=== PATIENT | female | born 1950 | race Caucasian/White ===

== ENCOUNTER 2020-12-05 01:26 | Emergency (ER) | payer BC, MEDICARE ==
[2020-12-05 02:12] LABS: Absolute Lymphocytes (CBC) 1.6 K/uL (0.7-4.9); Basophils % 0.5 % (0-1.3); Hematocrit 33.3 % (36.0-45.0); MPV 7.9 fL (7.6-11.3)
[2020-12-05 02:24] LABS: Protime INR 1.05
[2020-12-05 02:25] LABS: ALT/SGPT 36 U/L (12-78); AST/SGOT 21 U/L (15-37); Albumin 3.6 g/dL (3.4-5.0); Alkaline Phosphatase 180 U/L (45-117); BUN Blood Urea Nitrogen 16 mg/dL (7-18); Bicarbonate 23 mmol/L (21-32); Bilirubin Direct < 0.1 mg/dL (0-0.2); Bilirubin Total 0.3 mg/dL (0.2-1.0); Glucose Level 141 mg/dL (74-106); Lipase 272 U/L (73-393); Potassium 3.4 mmol/L (3.5-5.1); Protein, Total 7.6 g/dL (6.4-8.2); Sodium Level 140 mmol/L (136-145)
[2020-12-05] MEDS ORDERED: PANTOPRAZOLE 40 MG INJ ONE ×2 (02:32→02:34)
[2020-12-05] MEDS ORDERED: NA CHLORIDE 0.9% 250 ML ONE (02:33)
[2020-12-05 03:19] LABS: Urine Blood Negative (Negative); Urine Glucose Negative (Negative); Urine Protein Negative (Negative); Urine Specific Gravity 1.015 (1.005-1.030); Urine pH 5.5 (5.0-7.0)
--- NOTE | 2020-12-05 05:52 | EDPHYS ---
Physician Documentation [facility] Name: Amalia Bettencourt Age: 70 yrs Sex: Female : 1950 Arrival Date: 12/05/2020 Time: 01:40 Bed 4 Private MD: ED Physician Andrew Braswell HPI: 12/05 02:25 This 70 yrs old Female presents to ER via EMS with complaints of VOMITING mh7 BLOOD. 02:25 The patient presents to the emergency department vomiting blood, a moderate amount, mh7 bright red, in a single episode. Onset: The symptoms/episode began/occurred just prior to arrival, today. Abdominal pain: none is appreciated. Modifying factors: The symptoms are alleviated by nothing, the symptoms are aggravated by nothing. 02:26 Associated signs and symptoms: Pertinent negatives: anorexia, chest pain, constipation, mh7 diarrhea, dizziness at rest, dizziness when standing, fever, shortness of breath, syncope, near-syncope. Severity of symptoms: At their worst the symptoms were severe today, in the emergency department the symptoms have resolved and did so just prior to arrival. Historical: - Allergies: 01:47 No Known Allergies; rr5 - Home Meds: 01:47 Aspirin Oral [Active]; prasugrel oral oral [Active]; Alprazolam Oral [Active]; rr5 Ondansetron Oral [Active]; - PMHx: 01:47 ULCERATIVE COLLITIS; ABDOMINAL HERNIA; rr5 - PSHx: 01:47 Heart stents; rr5 02:31 Cholecystectomy; Hysterectomy; rr5 - Immunization history:: Adult Immunizations up to date. - Social history:: Smoking status: unknown. ROS: 02:26 Constitutional: Negative for fever, chills, and weight loss, Eyes: Negative for injury, mh7 pain, redness, and discharge, ENT: Negative for injury, pain, and discharge, Neck: Negative for injury, pain, and swelling, Cardiovascular: Negative for chest pain, palpitations, and edema, Respiratory: Negative for shortness of breath, cough, wheezing, and pleuritic chest pain, Back: Negative for injury and pain, : Negative for injury, bleeding, discharge, and swelling, MS/Extremity: Negative for injury and deformity, Skin: Negative for injury, rash, and discoloration, Neuro: Negative for headache, weakness, numbness, tingling, and seizure, Psych: Negative for depression, anxiety, suicide ideation, homicidal ideation, and hallucinations, Allergy/Immunology: Negative for hives, rash, and allergies, Endocrine: Negative for neck swelling, polydipsia, polyuria, polyphagia, and marked weight changes, Hematologic/Lymphatic: Negative for swollen nodes, abnormal bleeding, and unusual bruising. Exam: 02:26 Constitutional: This is a well developed, well nourished patient who is awake, alert, mh7 and in no acute distress. Head/Face: Normocephalic, atraumatic. Eyes: Pupils equal round and reactive to light, extra-ocular motions intact. Lids and lashes normal. Conjunctiva and sclera are non-icteric and not injected. Cornea within normal limits. Periorbital areas with no swelling, redness, or edema. Neck: Trachea midline, no thyromegaly or masses palpated, and no cervical lymphadenopathy. Supple, full range of motion without nuchal rigidity, or vertebral point tenderness. No Meningismus. Chest/axilla: Normal chest wall appearance and motion. Nontender with no deformity. No lesions are appreciated. Cardiovascular: Regular rate and rhythm with a normal S1 and S2. No gallops, murmurs, or rubs. Normal PMI, no JVD. No pulse deficits. Respiratory: Lungs have equal breath sounds bilaterally, clear to auscultation and percussion. No rales, rhonchi or wheezes noted. No increased work of breathing, no retractions or nasal flaring. Abdomen/GI: Soft, non-tender, with normal bowel sounds. No distension or tympany. No guarding or rebound. No evidence of tenderness throughout. Back: No spinal tenderness. No costovertebral tenderness. Full range of motion. Skin: Warm, dry with normal turgor. Normal color with no rashes, no lesions, and no evidence of cellulitis. MS/ Extremity: Pulses equal, no cyanosis. Neurovascular intact. Full, normal range of motion. Neuro: Awake and alert, GCS 15, oriented to person, place, time, and situation. Cranial nerves II-XII grossly intact. Motor strength 5/5 in all extremities. Sensory grossly intact. Cerebellar exam normal. Normal gait. Psych: Awake, alert, with orientation to person, place and time. Behavior, mood, and affect are within normal limits. 02:26 Abdomen/GI: Rectal exam: rectal tone normal, Stool: brown, guaiac negative, mh7 hemorrhoid(s), are not appreciated, mass, is not appreciated, swelling, is not appreciated, tenderness, is not appreciated, fecal impaction, is not appreciated, the exam is chaperoned by the nurse. Vital Signs: 01:40 BP 132 / 78; Pulse 86; Resp 16; Temp 97.7; Pulse Ox 98% 3 lpm ; Weight 81.65 kg; Height rr5 5 ft. 6 in. (167.64 cm); Pain 0/10; 02:33 BP 104 / 51; Pulse 80; Resp 19; Pulse Ox 100% on 3 lpm NC; rr5 03:30 BP 106 / 89; Pulse 75; Resp 17; Pulse Ox 99% on 2 lpm NC; rr5 04:33 BP 110 / 70; Pulse 64; Resp 16; Pulse Ox 99% on 2 lpm NC; rr5 05:30 BP 115 / 69; Pulse 60; Resp 17; Pulse Ox 97% on R/A; rr5 06:35 BP 121 / 67; Pulse 69; Resp 19; Pulse Ox 96% ; rr5 01:40 Body Mass Index 29.05 (81.65 kg, 167.64 cm) rr5 MDM: 05:49 Differential diagnosis: gastritis, hemorrhagic shock, varices, Upper GI bleed, mh7 Hematemasis. Data reviewed: vital signs, nurses notes, EMS record, lab test result(s), cardiac enzymes, CBC, electrolytes, EKG, radiologic studies, plain films. Data interpreted: Pulse oximetry: on room air is 99 %. Interpretation: normal. Counseling: I had a detailed discussion with the patient and/or guardian regarding: the historical points, exam findings, and any diagnostic results supporting the discharge/admit diagnosis, lab results, radiology results, the need to transfer to another facility, [facility] does not immediately have the required specialist. Response to treatment: the patient's symptoms have resolved after treatment, the patient's blood pressure is in an acceptable range, mental status has returned to baseline, the patient no longer shows bradycardia, the patient is not short of breath, the patient is not tachycardic, the patient's pain is gone, the patient's temperature has normalized. 05:51 Patient medically screened. 12/05 01:51 Order name: Basic Metabolic Panel; Complete Time: 02:53 [facility] 12/05 01:51 Order name: CBC with Diff; Complete Time: 02:46 [facility] 12/05 01:51 Order name: Hepatic Function; Complete Time: 02:53 [facility] 12/05 01:51 Order name: Lipase; Complete Time: 02:53 [facility] 12/05 01:51 Order name: Type And Screen; Complete Time: 02:53 [facility] 12/05 02:06 Order name: Protime (+inr); Complete Time: 02:53 [facility] 12/05 02:07 Order name: Ptt, Activated; Complete Time: 02:53 [facility] 12/05 02:07 Order name: Guiac [facility] 12/05 02:08 Order name: Troponin (emerg Dept Use Only); Complete Time: 02:53 [facility] 12/05 02:55 Order name: Lipase [facility] 12/05 02:56 Order name: Lipase; Complete Time: 04:30 [facility]MS 12/05 03:19 Order name: Urine Dipstick-Ancillary; Complete Time: 04:30 [facility] 12/05 04:34 Order name: SARS-COV-2 RT PCR; Complete Time: 05:00 [facility]MS 12/05 01:51 Order name: IV Saline Lock; Complete Time: 01:51 [facility] 12/05 01:51 Order name: Labs collected and sent; Complete Time: 01:51 [facility] 12/05 02:07 Order name: EKG - Nurse/Tech; Complete Time: 02:31 [facility] 12/05 02:08 Order name: Chest Single View XRAY [facility] 12/05 02:11 Order name: Urine Dipstick-Ancillary (obtain specimen); Complete Time: 03:18 mh7 Administered Medications: 02:25 Drug: ProTONIX (pantoprazole) 80 mg Route: IVP; Site: left hand; rr5 03:25 Follow up: Response: No adverse reaction rr5 02:30 Drug: ProTONIX (pantoprazole) 8 mg/hr Route: IV; Rate: 25 ml/hr; Site: left hand; rr5 06:31 Follow up: Response: No adverse reaction; IV Status: Infusion continued upon transfer; rr5 IV Intake: 100ml 03:10 Drug: NS 0.9% 500 ml Route: IV; Rate: bolus; Site: left hand; rr5 04:00 Follow up: Response: No adverse reaction; IV Status: Completed infusion; IV Intake: rr5 500ml Point of Care Testing: Guaiac: 02:07 Stool Guaiac: Negative; Stool Hemoccult Control: Pass; rr5 Disposition: 12/05/20 05:51 Transfer ordered to Other Acute Care Facility. Diagnosis is Upper GI Bleed, Hematemasis. - Reason for transfer: Higher level of care. - Accepting physician is Dr. Feliz Jung. - Condition is Stable. - Problem is new. - Symptoms have improved. Signatures: Dispatcher [employer] EDMS Miles Pardo, SALT MAKER-C SALT MAKER-Cla1 Bereket Bhatt, RN RN rr5 Andrew Braswell MD MD mh7 Corrections: (The following items were deleted from the chart) 03:38 03:02 CORONAVIRUS+MR.LAB.BRZ ordered. [facility] 05:52 05:51 12/05/2020 05:51 Transfer ordered to Other Acute Care Facility. Diagnosis is mh7 Upper GI Bleed, Hematemasis. Reason for transfer: Higher level of care. Accepting physician is Dr. Tan Jung. Condition is Stable. Problem is new. Symptoms have improved. [facility] 06:36 05:52 12/05/2020 05:51 Transfer ordered to Other Acute Care Facility. Diagnosis is rr5 Upper GI Bleed, Hematemasis. Reason for transfer: Higher level of care. Accepting physician is Dr. Feliz Jung. Condition is Stable. Problem is new. Symptoms have improved. 7
--- NOTE | 2020-12-05 05:52 | ER ---
Nurse's Notes [facility] Name: Amalia Bettencourt Age: 70 yrs Sex: Female : 1950 Arrival Date: 12/05/2020 Time: 01:40 Bed 4 Private MD: Diagnosis: Upper GI Bleed, Hematemasis Presentation: 12/05 01:40 Chief complaint: EMS states: sudden onset of vomiting fresh blood approximate 300ml on rr5 the floor. 01:40 Coronavirus screen: Client denies travel out of the [place] in the last 14 days. At this rr5 time, the client does not indicate any symptoms associated with coronavirus-19. Ebola Screen: Patient negative for fever greater than or equal to 101.5 degrees Fahrenheit, and additional compatible Ebola Virus Disease symptoms Patient denies exposure to infectious person. Patient denies travel to an Ebola-affected area in the 21 days before illness onset. Initial Sepsis Screen: Does the patient meet any 2 criteria? No. Patient's initial sepsis screen is negative. Does the patient have a suspected source of infection? No. Patient's initial sepsis screen is negative. Risk Assessment: Do you want to hurt yourself or someone else? Patient reports no desire to harm self or others. Onset of symptoms was December 05, 2020. 01:40 Method Of Arrival: EMS: [facility] rr5 01:40 Acuity: TASIA 3 rr5 Historical: - Allergies: 01:47 No Known Allergies; rr5 - Home Meds: 01:47 Aspirin Oral [Active]; prasugrel oral oral [Active]; Alprazolam Oral [Active]; rr5 Ondansetron Oral [Active]; - PMHx: 01:47 ULCERATIVE COLLITIS; ABDOMINAL HERNIA; rr5 - PSHx: 01:47 Heart stents; rr5 02:31 Cholecystectomy; Hysterectomy; rr5 - Immunization history:: Adult Immunizations up to date. - Social history:: Smoking status: unknown. Screenin:50 Abuse screen: Denies threats or abuse. Denies injuries from another. Nutritional rr5 screening: No deficits noted. Tuberculosis screening: No symptoms or risk factors identified. Fall Risk IV access (20 points). Total Singletary Fall Scale indicates No Risk (0-24 pts). Assessment: 01:49 General: Appears in no apparent distress. uncomfortable, Behavior is calm, cooperative, rr5 appropriate for age. Pain: Complains of pain in abdomen Pain Quality of pain is described as DISCOMFORT. Neuro: Level of Consciousness is awake, alert, obeys commands, Oriented to person, place, time. Cardiovascular: Capillary refill < 3 seconds Patient's skin is warm and dry. Respiratory: Airway is patent Respiratory effort is even, unlabored, Respiratory pattern is regular, symmetrical. GI: Abdomen is round Abdomen is tender to palpation Reports vomiting, fresh blood. : No signs and/or symptoms were reported regarding the genitourinary system. EENT: No signs and/or symptoms were reported regarding the EENT system. Derm: Skin is intact, is healthy with good turgor, Skin is pale, Skin temperature is warm. Musculoskeletal: Capillary refill < 3 seconds. 03:19 Reassessment: Patient appears in no apparent distress at this time. Patient is alert, rr5 oriented x 3, equal unlabored respirations, skin warm/dry/pink. for transfer to [facility]. 04:33 Reassessment: Patient appears in no apparent distress at this time. resting eyes closed rr5 breathing spontaneously with O2 at 2liters/NC. 04:56 Reassessment: no bed available in [facility], will try to transfer in [address] patient agreed. 06:07 Reassessment: Report given to STEPHY Aden for patient transfer to [place] [address] room 408. 06:36 Reassessment: Patient appears in no apparent distress at this time. Patient is alert, rr5 oriented x 3, equal unlabored respirations, skin warm/dry/pink. report given to [facility] awake alert, vital signs taken and recorded. IV cannula intact. Vital Signs: 01:40 BP 132 / 78; Pulse 86; Resp 16; Temp 97.7; Pulse Ox 98% 3 lpm ; Weight 81.65 kg; Height rr5 5 ft. 6 in. (167.64 cm); Pain 0/10; 02:33 BP 104 / 51; Pulse 80; Resp 19; Pulse Ox 100% on 3 lpm NC; rr5 03:30 BP 106 / 89; Pulse 75; Resp 17; Pulse Ox 99% on 2 lpm NC; rr5 04:33 BP 110 / 70; Pulse 64; Resp 16; Pulse Ox 99% on 2 lpm NC; rr5 05:30 BP 115 / 69; Pulse 60; Resp 17; Pulse Ox 97% on R/A; rr5 06:35 BP 121 / 67; Pulse 69; Resp 19; Pulse Ox 96% ; rr5 01:40 Body Mass Index 29.05 (81.65 kg, 167.64 cm) rr5 ED Course: 01:40 Patient arrived in ED. rr5 01:40 Inserted saline lock: 20 gauge in right forearm, using aseptic technique. Blood rr5 collected. 01:40 Maintain EMS IV. Dressing intact. Good blood return noted. Site clean \T\ dry. Gauge \T\ rr 5 site: g18 LEFT HAND. 01:41 Andrew Braswell MD is Attending Physician. [facility] 01:43 Bereket Bhatt RN is Primary Nurse. rr5 01:45 Triage completed. rr5 01:47 Arm band placed on right wrist. rr5 01:50 Patient has correct armband on for positive identification. Placed in gown. Bed in low rr5 position. Call light in reach. surveillance monitor on. Pulse ox on. NIBP on. 02:21 Chest Single View XRAY In Process Unspecified. EDMS 02:31 EKG done, by ED staff, reviewed by Andrew Braswell MD. rr5 04:38 initiated a transfer with Safia from [facility]. mw2 04:47 [facility] declined due to capacity. mw2 04:55 initiated a transfer with Yamila Brown from [facility]. mw2 05:[address] Braswell with Dr. Kwok from [facility]. mw2 05:49 administrative approval given by Yamila Brown/ patient has been accepted to [address] bed 408/ Dr. Kwok accepted the patient in transfer/ report to be called to [phone]. 06:08 No provider procedures requiring assistance completed. lp1 06:36 Patient transferred, IV remains in place. intact, No redness/swelling at site. rr5 Administered Medications: 02:25 Drug: ProTONIX (pantoprazole) 80 mg Route: IVP; Site: left hand; rr5 03:25 Follow up: Response: No adverse reaction rr5 02:30 Drug: ProTONIX (pantoprazole) 8 mg/hr Route: IV; Rate: 25 ml/hr; Site: left hand; rr5 06:31 Follow up: Response: No adverse reaction; IV Status: Infusion continued upon transfer; rr5 IV Intake: 100ml 03:10 Drug: NS 0.9% 500 ml Route: IV; Rate: bolus; Site: left hand; rr5 04:00 Follow up: Response: No adverse reaction; IV Status: Completed infusion; IV Intake: rr5 500ml Point of Care Testing: Guaiac: 02:07 Stool Guaiac: Negative; Stool Hemoccult Control: Pass; rr5 Intake: 04:00 IV: 500ml; Total: 500ml. rr5 06:31 IV: 100ml; Total: 600ml. rr5 Outcome: 05:51 ER care complete, transfer ordered by 7 06:08 Condition: stable lp1 06:08 Instructed on the need for transfer. 06:36 Transferred by ground EMS to [facility], Transfer form completed. rr5 06:36 Patient left the ED. rr5 Signatures: Dispatcher [employer] EDMS Amanda Frias RN RN lp1 Armando Soto 2 Bereket Bhatt RN RN rr5 Andrew Braswell MD MD 7 Corrections: (The following items were deleted from the chart) 01:49 01:40 BP 132 / 78; Pulse 86bpm; Resp 16bpm; Pulse Ox 98%; Temp 97.7F; 81.65 kg; Height rr5 5 ft. 6 in.; BMI: 29.0; Pain 0/10; rr5 02:01 01:49 Derm: Skin is intact, is healthy with good turgor, Skin temperature is warm rr5 rr5 05:53 05:[address] Braswell with [facility]. Fong [facility] mw2
[2020-12-05 06:45] VITALS: TEMP 97.7
[2020-12-05 07:00] VITALS: BP 121/67; O2SAT 96
--- NOTE | 2020-12-05 11:58 | RAD REPORT ---
EXAM DESCRIPTION: RAD - Chest Single View - 12/05/2020 2:23 am CLINICAL HISTORY: Hematemesis Chest pain. COMPARISON: CHEST PA AND LAT 2 VIEW dated 02/07/2011; CHEST SINGLE VIEW dated 10/12/2008 FINDINGS: Portable technique limits examination quality. The lungs are grossly clear. The heart is upper limit of normal in size. No displaced fractures.Cervi alexander spine hardware plate. IMPRESSION: No acute intrathoracic process suspected.
== END 2020-12-05 06:36 ==
LOC: ER 01:26
DX: K92.0 Hematemesis (principal); Z20.822 Contact with and (suspected) exposure to COVID-19; Z79.82 Long term (current) use of aspirin; Z95.818 Presence of other cardiac implants and grafts
CPT/HCPCS: 96365; 93005; 85025; 80048; 36415; 86900; 86850; 85610; 86901; 80076; 85730; 82272; 81003; 84484; 83690 ×2; 71045; 99285; 96366; U0003; C9113 ×2; J7050

== ENCOUNTER 2021-03-12 02:09 | Emergency (ER) | payer OTHER, MEDICARE ==
[2021-03-12] MEDS ORDERED: LIDOCAINE VISCOUS 2% SOLN 15 ML UDC ONE (02:40)
[2021-03-12] MEDS ORDERED: TETRACAINE HCL 0.5% 4ML OPTH ONE (03:34)
--- NOTE | 2021-03-12 03:42 | ER ---
Nurse's Notes [facility] Name: Amalia Bettencourt Age: 70 yrs Sex: Female : 1950 Arrival Date: 03/12/2021 Time: 02:12 Bed 12 Private MD: Diagnosis: Foreign body in left ear-insect, partial removal Presentation: 03/12 02:33 Chief complaint: Patient states: bug in left ear. Coronavirus screen: Vaccine status: em Patient reports receiving the 2nd dose of the covid vaccine. Ebola Screen: Patient negative for fever greater than or equal to 101.5 degrees Fahrenheit, and additional compatible Ebola Virus Disease symptoms Patient denies exposure to infectious person. Patient denies travel to an Ebola-affected area in the 21 days before illness onset. No symptoms or risks identified at this time. Initial Sepsis Screen: Does the patient meet any 2 criteria? HR > 90 bpm. No. Patient's initial sepsis screen is negative. Does the patient have a suspected source of infection? No. Patient's initial sepsis screen is negative. Risk Assessment: Do you want to hurt yourself or someone else? Patient reports no desire to harm self or others. Onset of symptoms was March 12, 2021. 02:33 Method Of Arrival: Wheelchair em 02:33 Acuity: TASIA 4 em Triage Assessment: 04:10 General: Appears uncomfortable, Behavior is cooperative, appropriate for age. Pain: df1 Complains of pain in left ear. EENT: Ear canal w/ foreign body noted from left ear. Neuro: No deficits noted. Cardiovascular: No deficits noted. Respiratory: No deficits noted. GI: No deficits noted. Historical: - Allergies: 02:34 No Known Allergies; em - PMHx: 02:34 abdominal hernia; ulcerative collitis; em - Immunization history:: Client reports receiving the 2nd dose of the Covid vaccine. - Social history:: Smoking status: Patient denies any tobacco usage or history of. Screenin:10 Abuse screen: Denies threats or abuse. Nutritional screening: No deficits noted. df1 Tuberculosis screening: No symptoms or risk factors identified. Fall Risk None identified. Assessment: 04:13 Reassessment: Patient appears in no apparent distress at this time. No changes from df1 previously documented assessment. General: Appears distressed, Behavior is cooperative, Reports Denies fever, feeling ill, fatigue, chills. Neuro: No deficits noted. Cardiovascular: No deficits noted. Respiratory: No deficits noted. EENT: Ear canal w/ foreign body noted from left ear. Vital Signs: 02:33 Pulse 134; Resp 28; Temp 97.1; Pulse Ox 99% on R/A; em 03:38 BP 134 / 72; Pulse 96; Resp 20; Pulse Ox 98% on R/A; em 04:15 BP 133 / 79; Pulse 78; Resp 18; Temp 98.2; Pulse Ox 98% on R/A; df1 ED Course: 02:12 Patient arrived in ED. bp1 02:22 Andrew Braswell MD is Attending Physician. mh7 02:34 Triage completed. em 02:34 Arm band placed on. em 03:13 Argelia Castaneda is Primary Nurse. df1 03:39 Tuyet Wilde MD is Referral Physician. 7 04:11 Assist provider with foreign body removal from left ear canal. Patient did not have IV df1 access during this emergency room visit. 04:13 Patient has correct armband on for positive identification. Placed in gown. Bed in low df1 position. Call light in reach. Door closed. Noise minimized. Lights dimmed. Administered Medications: 03:20 Drug: Tetracaine Solution (0.5 %) 1 drops {Note: left ear.} Route: Topical; Site: em affected area; Outcome: 03:41 Discharge ordered by . 7 04:12 Discharged to home ambulatory. df1 04:12 Condition: good 04:12 Discharge instructions given to patient, Instructed on discharge instructions, follow up and referral plans. 04:16 Patient left the ED. df1 Signatures: Sen Johnson, RN RN Tg [facility] Andrew Braswell MD MD mh7 [place], Dawn df1
--- NOTE | 2021-03-12 03:42 | EDPHYS ---
Physician Documentation [facility] Name: Amalia Bettencourt Age: 70 yrs Sex: Female : 1950 Arrival Date: 03/12/2021 Time: 02:12 Bed 12 Private MD: ED Physician Andrew Braswell HPI: 03/12 02:50 This 70 yrs old Female presents to ER via Wheelchair with complaints of mh7 Foreign Body In Ear, - Possibly bug. 02:50 The patient or guardian reports the patient has a suspected foreign body, of the ear, mh7 on the left. The reported likely foreign body is an insect. Onset: The symptoms/episode began/occurred today. Current symptoms: foreign body sensation. Treatment Prior to Arrival: none. Historical: - Allergies: 02:34 No Known Allergies; em - PMHx: 02:34 abdominal hernia; ulcerative collitis; em - Immunization history:: Client reports receiving the 2nd dose of the Covid vaccine. - Social history:: Smoking status: Patient denies any tobacco usage or history of. ROS: 02:50 Constitutional: Negative for fever, chills, and weight loss, Eyes: Negative for injury, mh7 pain, redness, and discharge, Neck: Negative for injury, pain, and swelling, Cardiovascular: Negative for chest pain, palpitations, and edema, Respiratory: Negative for shortness of breath, cough, wheezing, and pleuritic chest pain, Abdomen/GI: Negative for abdominal pain, nausea, vomiting, diarrhea, and constipation, Back: Negative for injury and pain, : Negative for injury, bleeding, discharge, and swelling, MS/Extremity: Negative for injury and deformity, Skin: Negative for injury, rash, and discoloration, Neuro: Negative for headache, weakness, numbness, tingling, and seizure, Psych: Negative for depression, anxiety, suicide ideation, homicidal ideation, and hallucinations, Allergy/Immunology: Negative for hives, rash, and allergies, Endocrine: Negative for neck swelling, polydipsia, polyuria, polyphagia, and marked weight changes, Hematologic/Lymphatic: Negative for swollen nodes, abnormal bleeding, and unusual bruising. Exam: 02:50 Head/Face: Normocephalic, atraumatic. mh7 02:50 Skin: Warm, dry with normal turgor. Normal color with no rashes, no lesions, and no evidence of cellulitis. Neuro: Awake and alert, GCS 15, oriented to person, place, time, and situation. Cranial nerves II-XII grossly intact. Motor strength 5/5 in all extremities. Sensory grossly intact. Cerebellar exam normal. Normal gait. 02:50 Constitutional: The patient appears in no acute distress, alert, awake, anxious. 02:50 ENT: External ear(s): are unremarkable, Ear canal(s): foreign body, an insect, in the left external ear canal, TM's: not visable, because of a foreign body, Examination of the other ear shows no obvious abnormality, Nose: is normal. 02:50 Psych: Behavior/mood is anxious, Affect is animated, Oriented to person, place, time, Patient has no thoughts/intents to harm self or others. Judgement / Insight is normal. Memory is normal. Delusions/hallucinations are not present. Vital Signs: 02:33 Pulse 134; Resp 28; Temp 97.1; Pulse Ox 99% on R/A; em 03:38 BP 134 / 72; Pulse 96; Resp 20; Pulse Ox 98% on R/A; em 04:15 BP 133 / 79; Pulse 78; Resp 18; Temp 98.2; Pulse Ox 98% on R/A; df1 Procedures: 02:50 Foreign Body Removal: an insect, from the left ear canal, by using a curette, lidocaine [facility] lavage, normal saline irrigation, The patient tolerated the removal well, Partial removal of insect from left ear. MDM: 02:50 Data reviewed: vital signs, nurses notes. Counseling: I had a detailed discussion with [facility] the patient and/or guardian regarding: the historical points, exam findings, and any diagnostic results supporting the discharge/admit diagnosis, the need for outpatient follow up, an ENT specialist, to return to the emergency department if symptoms worsen or persist or if there are any questions or concerns that arise at home. Response to treatment: the patient's symptoms have markedly improved after treatment. 03:41 Patient medically screened. [facility] Administered Medications: 03:20 Drug: Tetracaine Solution (0.5 %) 1 drops {Note: left ear.} Route: Topical; Site: em affected area; Disposition Summary: 03/12/21 03:41 Discharge Ordered Location: Home [facility] Problem: new [facility] Symptoms: have improved [facility] Condition: Stable [facility] Diagnosis - Foreign body in left ear - insect, partial removal [facility] Followup: [facility] - With: Tuyet Wilde MD - When: 1 - 2 days - Reason: Worsening of condition, Recheck today's complaints Discharge Instructions: - Discharge Summary Sheet [facility] - Ear Foreign Body, [id number] [facility] Forms: - Medication Reconciliation Form [facility] - Thank You Letter [facility] - Antibiotic Education [facility] - Prescription Opioid Use [facility] Prescriptions: - Cortisporin-TC 3.3-3-10-0.5 mg/mL Otic Suspension - instill 4 drops by OTIC route every 6 hours; 1 bottle; Refills: 0, Product [facility] Selection Permitted Signatures: Sen Johnson RN RN Andrew Sahni MD MD [facility] Argelia Castaneda df1
[2021-03-12 04:23] VITALS: O2SAT 98
[2021-03-12 04:24] VITALS: BP 133/79; TEMP 98.2
== END 2021-03-12 04:16 | disposition home or self-care (01) ==
LOC: ER 02:09
PROC: 09C4XZZ Extirpation of Matter from Left External Auditory Canal, External Approach (ICD-10-PCS; principal; 2021-03-12)
DX: T16.2XXA Foreign body in left ear, initial encounter (principal)
CPT/HCPCS: 99283

== ENCOUNTER 2021-03-13 11:53 | Emergency (ER) | payer OTHER, MEDICARE ==
[2021-03-13] MEDS ORDERED: HYDROCODONE/APAP 5/325 MG TAB ONE (12:57)
--- NOTE | 2021-03-13 13:02 | EDPHYS ---
Physician Documentation [facility] Name: Amalia Bettencourt Age: 70 yrs Sex: Female : 1950 Arrival Date: 03/13/2021 Time: 11:54 Bed 16 Private MD: ED Physician Nilton Decker HPI: 03/13 12:58 This 70 yrs old Female presents to ER via Ambulatory with complaints of pm1 Foreign Body In Ear - partial removal yest. 17:26 The patient presents with pain, that is acute. The complaints affect the left ear. pm1 Onset: The symptoms/episode began/occurred yesterday. Modifying factors: The symptoms are alleviated by nothing, the symptoms are aggravated by And body present in ear, insect. Associated signs and symptoms: The patient has no apparent associated signs or symptoms. Severity of symptoms: in the emergency department the symptoms are unchanged. The patient has not experienced similar symptoms in the past. The patient has been recently seen at the [facility] Emergency Department, yesterday, for similar complaints Partial removal of insect from ear yesterday, discharged home with Cortisporin otic. Historical: - Allergies: 12:13 No Known Allergies; aa5 - PMHx: 12:13 abdominal hernia; ulcerative collitis; aa5 - Immunization history:: Client reports receiving the 2nd dose of the Covid vaccine. - Social history:: Smoking status: Patient denies any tobacco usage or history of. ROS: 17:26 Constitutional: Negative for fever, chills, and weight loss. pm1 17:26 Cardiovascular: Negative for chest pain, palpitations, and edema, Respiratory: Negative for shortness of breath, cough, wheezing, and pleuritic chest pain. 17:26 Abdomen/GI: Negative for abdominal pain, nausea, vomiting, diarrhea, and constipation, MS/Extremity: Negative for injury and deformity, Skin: Negative for injury, rash, and discoloration, Neuro: Negative for headache, weakness, numbness, tingling, and seizure. 17:26 ENT: Positive for ear pain, Negative for sore throat. 17:26 All other systems are negative. Exam: 17:26 Constitutional: This is a well developed, well nourished patient who is awake, alert, pm1 and in no acute distress. Head/Face: Normocephalic, atraumatic. 17:26 Skin: Warm, dry with normal turgor. Normal color with no rashes, no lesions, and no evidence of cellulitis. MS/ Extremity: Pulses equal, no cyanosis. Neurovascular intact. Full, normal range of motion. 17:26 ENT: External ear(s): no acute changes, Ear canal(s): foreign body, an insect, in the left external ear canal, partial portion of its thorax, TM's: no acute changes. 17:26 Cardiovascular: Exam negative for acute changes, Rate: normal, Rhythm: regular, Pulses: no pulse deficits are appreciated. 17:26 Respiratory: Exam negative for acute changes, respiratory distress, shortness of breath. 17:26 Neuro: Exam negative for acute changes, Orientation: is normal, Mentation: is normal, Motor: is normal, moves all fours, Gait: is steady, at a normal pace, without difficulty. Vital Signs: 12:09 BP 123 / 69; Pulse 103; Resp 20 S; Temp 97.6(TE); Pulse Ox 97% on R/A; aa5 13:00 BP 131 / 71; Pulse 97; Resp 19; Temp 97.9; Pulse Ox 98% ; bp MDM: 12:12 Patient medically screened. [facility] 12:58 Data reviewed: vital signs. Data interpreted: Pulse oximetry: on room air is 97 %. pm1 Interpretation: normal. Counseling: I had a detailed discussion with the patient and/or guardian regarding: the historical points, exam findings, and any diagnostic results supporting the discharge/admit diagnosis, the need for outpatient follow up, for definitive care, an ENT specialist, to return to the emergency department if symptoms worsen or persist or if there are any questions or concerns that arise at home. 12:58 ED course: Reports improvement in symptoms with ear irrigation. Some portions of the pm1 insect still present in the ear, but close to the tympanic membrane. I do not want to use any clamps or curettes due to the risk of causing harm. Recommended the patient follow up with ENT for definitive care. 13:07 ED course: [place] reviewed. Patient with pain from foreign body present in the ear pm1 that I cannot remove. Will give the patient small dose of codeine for enough days to follow up with ENT. Administered Medications: 12:30 Drug: HYDROcodone-acetaminophen 5 mg-325 mg 1 tabs Route: PO; bp 12:51 Follow up: Response: Pain is decreased bp Disposition: 03/14 10:00 Co-signature as Attending Physician, Nilton Decekr MD I agree with the assessment and calvin plan of care. Disposition Summary: 03/13/21 13:01 Discharge Ordered Location: Home pm1 Problem: new pm1 Symptoms: have improved pm1 Condition: Stable pm1 Diagnosis - Foreign body in left ear pm1 Followup: pm1 - With: Emergency Department - When: As needed - Reason: Worsening of condition Followup: pm1 - With: Ami Duque MD - When: 2 - 3 days - Reason: Recheck today's complaints, Continuance of care, Re-evaluation by your physician Discharge Instructions: - Discharge Summary Sheet pm1 - Ear Foreign Body pm1 Forms: - Medication Reconciliation Form pm1 - Thank You Letter pm1 - Antibiotic Education pm1 - Prescription Opioid Use pm1 Prescriptions: - acetaminophen-codeine 300-15 mg Oral tablet - take 1 tablet by ORAL route every 6 hours As needed; 12 tablet; Refills: 0, pm1 Product Selection Permitted Signatures: Nilton Decker MD MD cha Calderon, Audri, RN RN aa5 Flakito Lam NP [employer] pm1 Dayron Hodgson, RN RN bp
--- NOTE | 2021-03-13 13:02 | ER ---
Nurse's Notes [facility] Name: Amalia Bettencourt Age: 70 yrs Sex: Female : 1950 Arrival Date: 03/13/2021 Time: 11:54 Bed 16 Private MD: Diagnosis: Foreign body in left ear Presentation: 03/13 12:09 Chief complaint: Patient states: seen here yesterday for insect in her left ear, pt aa5 states "they weren't able to take it all out yesterday and my ear hurts and is swollen". 12:09 Coronavirus screen: At this time, the client does not indicate any symptoms associated aa5 with coronavirus-19. Ebola Screen: Patient negative for fever greater than or equal to 101.5 degrees Fahrenheit, and additional compatible Ebola Virus Disease symptoms. Initial Sepsis Screen: Does the patient meet any 2 criteria? HR > 90 bpm. Does the patient have a suspected source of infection? No. Patient's initial sepsis screen is negative. Risk Assessment: Do you want to hurt yourself or someone else? Patient reports no desire to harm self or others. Onset of symptoms was February 2021. 12:09 Acuity: TASIA 4 aa5 12:09 Method Of Arrival: Ambulatory aa5 Triage Assessment: 13:32 General: Appears distressed, uncomfortable, obese, Behavior is cooperative, appropriate bp for age, anxious. Pain: Complains of pain in left ear. EENT: Reports INSECT IN LEFT EAR. Neuro: No deficits noted. Cardiovascular: No deficits noted. Respiratory: No deficits noted. GI: No signs and/or symptoms were reported involving the gastrointestinal system. : No signs and/or symptoms were reported regarding the genitourinary system. Derm: No deficits noted. Musculoskeletal: No deficits noted. Historical: - Allergies: 12:13 No Known Allergies; aa5 - PMHx: 12:13 abdominal hernia; ulcerative collitis; aa5 - Immunization history:: Client reports receiving the 2nd dose of the Covid vaccine. - Social history:: Smoking status: Patient denies any tobacco usage or history of. Screenin:15 Abuse screen: Denies threats or abuse. Denies injuries from another. Nutritional bp screening: No deficits noted. Tuberculosis screening: No symptoms or risk factors identified. Fall Risk None identified. Assessment: 13:30 Reassessment: PT D/C HOME AMBULATORY, DX WITH LEFT EAR FOREIGN BODY. bp Vital Signs: 12:09 BP 123 / 69; Pulse 103; Resp 20 S; Temp 97.6(TE); Pulse Ox 97% on R/A; aa5 13:00 BP 131 / 71; Pulse 97; Resp 19; Temp 97.9; Pulse Ox 98% ; bp ED Course: 11:54 Patient arrived in ED. as 12:09 Dayron Hodgson, RN is Primary Nurse. bp 12:09 Arm band placed on. aa5 12:10 Flakito Lam NP is PHCP. pm1 12:10 Nilton Decker MD is Attending Physician. pm1 12:13 Triage completed. aa5 12:15 Patient has correct armband on for positive identification. Bed in low position. Call bp light in reach. Side rails up X2. 12:15 Assist provider with foreign body removal from left ear canal. UNSUCCESSFUL. bp 13:01 Ami Duque MD is Referral Physician. pm1 13:32 Patient did not have IV access during this emergency room visit. bp Administered Medications: 12:30 Drug: HYDROcodone-acetaminophen 5 mg-325 mg 1 tabs Route: PO; bp 12:51 Follow up: Response: Pain is decreased bp Outcome: 13:01 Discharge ordered by . pm1 13:32 Discharged to home ambulatory. bp 13:32 Condition: stable 13:32 Discharge instructions given to patient, Instructed on discharge instructions, follow up and referral plans. medication usage, Demonstrated understanding of instructions, follow-up care, medications, Prescriptions given X 1. 13:36 Patient left the ED. bp Signatures: Venita Granado Audri, RN RN aa5 Flakito Lam NP TESTING CONSULTANT pm1 Dayron Hodgson, STEPHY RN bp
[2021-03-13 13:43] VITALS: BP 131/71; TEMP 97.9; O2SAT 98
== END 2021-03-13 13:36 | disposition home or self-care (01) ==
LOC: ER 11:53
DX: T16.2XXA Foreign body in left ear, initial encounter (principal)
CPT/HCPCS: 99283

== ENCOUNTER 2021-08-04 18:38 | Inpatient (IN) | payer OTHER, MEDICARE ==
--- OUTSIDE RECORDS SUMMARY | 2021-08-04 18:43 | XMS REPORT | Continuity of Care Document ---
:1950 Author Organization [facility] t Address [address] [place] [address] Care Team Providers Name Role Phone PCP, DOES NOT HAVE A Primary Care Physician Unavailable HANK Attending Clinician Unavailable Attending Clinician Unavailable Singer WIGGINS Attending Clinician ORLIN Attending Clinician Unavailable LIANG Attending Clinician Unavailable MD Carolina TAVERA Attending Clinician Unavailable VERONICA Attending Clinician Unavailable MD PAWAN Attending Clinician Unavailable DANA Attending Clinician Unavailable MD Harriet CORTEZ Attending Clinician Unavailable HANK Admitting Clinician Unavailable Admitting Clinician Unavailable Elena LEVY Admitting Clinician Unavailable LIANG Admitting Clinician Unavailable MD Carolina TAVERA Admitting Clinician Unavailable VERONICA Admitting Clinician Unavailable MD PAWAN Admitting Clinician Unavailable DANA Admitting Clinician Unavailable MD Harriet CORTEZ Admitting Clinician Unavailable Payers Payer Name Policy Type Policy Number Effective Date Expiration Date S jem BCBS ADV HMO [id number] 2015 EXCHANGE 00:00:00 [facility] [id number] HEALTHCARE MEDICARE PART A \\T\\ [id number] 2015 B 00:00:00 [facility] [id number] 2020 MEDICARE SUPPLEMENT 00:00:00 Problems Condition Condition Condition Status Onset Resolution Last Treating Co mments Source Name Details Category Date Date Treatment Clinician Date No known No known Disease Unive rs active active ity of problems problems [facility] Nausea Problem Active 2016-04-25 Memor ia 02:07:56 l Nausea [place] Active Problem 04/25/2016 [facility] Constipati Problem Active 2016-04-25 M emoria on 02:07:56 l Ten Constipati on Active Problem 6 [facility] GERD Problem Active 2016-04-25 Memor ia (PQRI) 02:07:56 l GERD [place] (PQRI) Active Problem 04/25/2016 [facility] Allergies, Adverse Reactions, Alerts Allergy Allergy Status Severity Reaction(s) Onset Inactive Treating Comm ents Source Name Type Date Date Clinician NO KNOWN Allergy Active [facility] ALLERGIE S NO KNOWN Drug Active Univers ALLERGIE Class ity of S [facility] Social History Social Habit Start Date Stop Date Quantity Comments Source Exposure to Not sure [facility] SARS-CoV-2 (event) Medica l [place] Alcohol 2014-11-09 2014-11-09 Dot Hackett nn 00:00:00 00:00:00 Sex Ass[birth year] At [birth year] [facility] 00:00:00 00:00:00 [facility] Smoking Status Start Date Stop Date Source Unknown if ever smoked General acute hospital Medications Ordered Filled Start Stop Current Ordering Indication Dosage Frequency Signature Comments Components Source Medication Medication Date Date Medication? Clinician (SIG) Name Name iohexol 2021- No [id number] 50mL 50 mL, Un jameson (OMNIPAQUE 07-13 Oral, ity of 350 BULK) 20:00: 20:00 [place]CE, 1 [place] 50 [place] 00 :00 dose, On Medical Wed Branch 07/13/21 at 1400, Routine barium 2021- No [id number] 680g 680 g, Uni vers sulfate 07-13 Oral, ity of (LIQUID E-Z 20:00: 20[place]05 [place] 60 % 00 :00 dose, On Medi alexander (w/v) oral Wed Branch suspension 07/13/21 at 680 g 1400, Routine No known No Univers medications 07-13 ity of 13:52: [place] 24 Medical Branch KCL 2020- No 40meq 40 mEq, Univers (KLOR-CON 07-16 Oral, ity of M20) tablet 15:45: 15:01 [place] 40 mEq 00 :00 dose, Fri Medical 07/16/20 at Branch 0945, KASSIE LORazepam 2020- No .5mg 0.5 mg, Univ ers (ATIVAN) 07-16 Slow IV ity of injection 15:15: 15:05 Push, [place] 0.5 mg 00 :00 ONCE, 1 Medical dose, Fri Branch 07/16/20 at 0915, STAT iohexol 2020- No 100mL 100 mL, Unive rs (OMNIPAQUE 07-16 Intravenou it y of 350 15:15: 14:54 s, ONCE, 1 [place] BULK-100 00 :00 dose, Fri Medica l mL) 07/16/20 at Maurice injection 0915, 100 mL Routine ondansetron 2020- No 4mg 4 mg, Slow Univers (ZOFRAN 07-16 IV Push, ity of (PF)) 15:00: 15:05 ONCE, 1 [place] injection 4 00 :00 dose, Fri Med ical mg 07/16/20 at Branch 0900, Routine NaCl 0.9% 2020- No 1000mL at 999 Uni vers (NS) bolus 07-16 mL/hr, ity of infusion 14:15: 16:30 1,000 mL, Jovanny as 1,000 mL 00 :00 IV Medical Infusion, [place] ONCE, 1 dose, 07/16/20 at 0815, STAT Linzess 2016-0 Yes Chace TAKE 1 Memoria 1-29 Wilson CAPSULE BY l 00:00: MOUTH [place] 00 EVERY DAY Linzess 2014- Yes Chace 1 cap(s) Memor ia 1-12 [place] l 00:00: [place] 00 Carafate 2013- Yes Chace 1 tab(s) Winston katharine 2-16 Wilson l 03:03: [place] 18 pantoprazol Yes Chace 1 tab(s) M emoria e 8-13 Wilson l 00:00: [place] 00 No known No Univers medications ity of [facility] Vital Signs Vital Name Observation Time Observation Value Comments Source HEIGHT 2020-12-05 17:00:00 165.1 cm WEIGHT 2020-12-05 17:00:00 79.379 kg Systolic blood 2021-07-13 19:00:00 136 mm[Hg] Univer sity of [facility] Diastolic blood 2021-07-13 19:00:00 77 mm[Hg] Unive rsity of pressure [facility] Heart rate 2021-07-13 19:00:00 81 /min [facility] Respiratory rate 2021-07-13 19:00:00 11 /min [facility] Oxygen saturation in 2021-07-13 19:00:00 97 /min University of Arterial blood by [facility] Pulse oximetry Branch Body temperature 2021-07-13 17:21:00 37 Carolyn [facility] Body weight 2021-07-13 17:21:00 81.647 kg [facility] HEIGHT 2020-12-05 17:00:00 165.1 cm WEIGHT 2020-12-05 17:00:00 79.379 kg Diastolic blood 2020-07-16 17:00:00 73 mm[Hg] Unive rsity of [facility] Heart rate 2020-07-16 17:00:00 57 /min [facility] Respiratory rate 2020-07-16 17:00:00 18 /min [facility] Oxygen saturation in 2020-07-16 17:00:00 96 /min University of Arterial blood by [facility] Pulse oximetry Branch Systolic blood 2020-07-16 17:00:00 122 mm[Hg] Univer sity of [facility] Body temperature 2020-07-16 14:02:00 36.72 Carolyn [facility] Body weight 2020-07-16 14:00:00 81.647 kg [facility] Procedures Procedure Date / Time Performing Clinician Source Performed FL BARIUM SWALLOW 2021-07-13 20:17:23 Singer Taylor [facility] ESOPHAGUS [facility] Branch TROPONIN I 2021-07-13 18:43:00 Singer [facility] COMP. METABOLIC PANEL 2021-07-13 18:43:00 Taylor Figueroa [facility] ([id number]) Medical [place] CBC WITH DIFF 2021-07-13 18:43:00 Singer [facility] URINALYSIS 2021-07-13 18:43:[address] [facility] [address] CHEST PULMONARY 2020-07-16 15:05:35 Singer [facility] ANGIOGRAM Medical Branch LIPASE 2020-07-16 14:08:00 Singer [facility] MAGNESIUM 2020-07-16 14:08:00 [facility] TROPONIN I 2020-07-16 14:08:00 Singer [facility] COMP. METABOLIC PANEL 2020-07-16 14:08:00 Singer [facility] ([id number]) Medical Branch CBC WITH DIFF 2020-07-16 14:08:00 Singer [facility] PROTHROMBIN TIME / INR 2020-07-16 14:08:00 Singer [facility] D-DIMER 2020-07-16 14:08:00 Singer [facility] ACTIVATED PARTIAL 2020-07-16 14:08:[address] [facility] THRMPLAS HEATHER [facility] N-TERMINAL PRO-BNP 2020-07-16 14:08:[address] [facility] COVID-19 (ID NOW RAPID 2020-07-16 14:08:00 Singer Taylor [facility] TESTING) Medical Branch Encounters Start End Encounter Admission Attending Care Care Encounter Source Date/Time Date/Time Type Type Clinicians Facility Department ID 2020-12-05 Inpatient ER HANK, [facility] General Med [id number] [facility] 08:14:00 SWATHISHTA 2021-07-13 2021-07-13 Emergency X SINGER [facility] ERT [id number] Univers 11:18:00 14:53:00 TAYLOR son [facility] [place] 2021-07-13 2021-07-13 Emergency Singer [facility] [id number] Univers 11:18:00 14:53:00 Taylor MCDOWELL [id number] i ty [facility] [id number] [facility] [id number] [facility] alexander 084 Branch 2021-06-09 2021-06-09 Outpatient ORDAZ, [facility] [id number] [place] 00:00:00 00:00:00 JUAN 791 Method i 2021-06-09 2021-06-09 Outpatient ORDAZ, [facility] [id number] [place] 00:00:00 00:00:00 JUAN 424 Method i 2021-06-08 2021-06-08 Outpatient ORDAZ, [facility] [id number] [place] 00:00:00 00:00:00 JUAN 786 Method i 2021-06-06 2021-06-06 Outpatient ORDAZ, [facility] [id number] [place] 00:00:00 00:00:00 JUAN 375 Method i 2021-02-07 2021-02-07 Outpatient ORDAZ, [facility] [id number] [place] 00:00:00 00:00:00 JUAN 544 Method i 2020-10-20 2020-10-20 Outpatient ORDAZ, [facility] [id number] [place] 00:00:00 00:00:00 JUAN 691 Method i 2020-07-23 2020-07-23 Outpatient ORDAZ, [facility] [id number] [place] 00:00:00 00:00:00 JUAN 500 Method i 2020-07-23 2020-07-23 Outpatient ORDAZ, [facility] [id number] [place] 00:00:00 00:00:00 JUAN 439 Method i 2020-07-16 2020-07-18 Inpatient TAVERA, [facility] [id number] [place] 00:00:00 00:00:00 VANESSA 157 Method i 2020-07-16 2020-07-16 Emergency [facility] [id number] [facility] 08:03:00 12:22:00 Taylor Mcdowell [id number] petra Rosario [id number] [facility] [id number] [facility] 084 Branch 2020-07-16 2020-07-16 Emergency X [facility] ERT [id number] Univers 08:03:00 08:03:00 TAYLOR son [facility] [place] 2020-07-02 2020-07-06 Inpatient MCCARTAN, [facility] 012 [id number] [place] 00:00:00 00:00:00 SHELDON [address] 2020-03-16 2020-03-16 Outpatient DANA, NATHEN [facility] [id number] [place] 00:00:00 00:00:[address] 2020-03-16 2020-03-16 Outpatient DANA, NATHEN [facility] [id number] [id number] [place] 00:00:00 00:00:[address] 2020-03-08 2020-03-08 Outpatient ORDAZ, [facility] [id number] [place] 00:00:00 00:00:00 JUAN [address] 2020-02-25 2020-02-28 Inpatient DANA, NATHEN [place] [id number] [place] 00:00:00 00:00:[address] 2020-02-20 2020-02-20 Outpatient DANA, NATHEN [facility] [id number] [place] 00:00:00 00:00:[address] 2020-02-03 2020-02-03 Outpatient DANA, NATHEN [facility] [id number] [place] 00:00:00 00:00:[address] 2020-02-03 2020-02-03 Outpatient DANA, NATHEN [facility] [id number] [place] 00:00:00 00:00:[address] 2019-11-03 2019-11-03 Outpatient ORDAZ, [facility] [id number] [place] 00:00:00 00:00:00 JUAN [address] 2016-04-24 2016-04-24 [facility] [id number] 1-e Memoria 16:12:00 16:12:00 melyssa Salinas 6ee-42fc-b l [facility] [id number] lizette albarran 163ee1 Consultants 2015-05-06 2015-05-06 Refill [facility] [id number] 3-c Memoria 21:51:00 21:51:00 melyssa Salinas f86-51l7-9 l Gastroenter 89c-1e92a5 lizette albarran c14a23 Consultants 2015-05-06 2015-05-06 Refill [facility] [id number] 1-b Memoria 20:51:00 20:51:00 melyssa Salinas 894-4abf-9 l Gastroenter 3af-vi057o H ermann ology qsv998 Consultants 2014-08-18 2014-08-18 Prior Auth [facility] 0baa e8e3-1 Memoria 17:45:00 17:45:00 r Rita a27-38tm-l l Gastroenter s1p-4rz442 H ermann ology [id number] Consultants 2014-08-18 2014-08-18 Prior Auth [facility] 01b4 d541-b Memoria 17:45:00 17:45:00 r Rita 2h4-1nn6-v l Gastroenter [id number] H ermann ology 063640 Consultants 2014-08-18 2014-08-18 Prior Auth [facility] 1418 e962-f Memoria 16:45:00 16:45:00 r Rita 7fa-49da-a l Gastroenter fa9-2e54d9 H ermann ology 75ae4d Consultants 2014-07-29 2014-07-29 Pt status [facility] b9e8a 584-2 Memoria 19:52:00 19:52:00 r Rita da8-4b7f-a l Gastroenter c0s-2qh909 H ermann ology 9206e8 Consultants 2014-07-29 2014-07-29 Pt status [facility] 768a8 1cf-f Memoria 19:52:00 19:52:00 r Rita 68f-4a74-b l Gastroenter 95b-26i747 H ermann ology 7d40bb Consultants 2014-07-29 2014-07-29 Pt status [facility] d77e0 1c1-e Memoria 18:52:00 18:52:00 r Rita 0x3-494b-3 l Gastroenter m02-96hfgu H ermann ology x1k987 Consultants 2014-06-08 2014-06-08 Refill on [facility] 5e322 ab7-7 Memoria 18:55:00 18:55:00 meds r Rita 1eb-457c-b l Gastroenter u19-n9n40s H ermann ology 65b7aa Consultants 2014-06-08 2014-06-08 Refill on [facility] [id number] ab9-1 Memoria 18:55:00 18:55:00 meds r Rita 679-4f2f-a l Gastroenter 362-3ac00f H ermann ology 6318f8 Consultants 2014-06-08 2014-06-08 Refill on [facility] 974fa e21-1 Memoria 18:55:00 18:55:00 meds r Rita 6o0-5895-7 l Gastroenter t7r-a0sa8q H ermann ology c96fb1 Consultants 2014-06-08 2014-06-08 Refill on [facility] 1da24 ed2-7 Memoria 17:55:00 17:55:00 meds r Rita 6l6-4u19-v l Gastroenter 3p1-5gj866 H ermann ology b7a8e0 Consultants 2014-05-14 2014-05-14 Refill on [facility] 9744f 3eb-7 Memoria 17:25:00 17:25:00 Meds r Rita 335-4d96-8 l Gastroenter 2u7-q2x764 H ermann ology 4f8b5a Consultants 2014-05-14 2014-05-14 Refill on [facility] 20278 686-0 Memoria 17:25:00 17:25:00 Meds r Rita 729-48be-9 l Gastroenter 0f1-3ggz19 H ermann ology abe64f Consultants 2014-05-14 2014-05-14 Refill on [facility] 434ee a1b-7 Memoria 17:25:00 17:25:00 Meds r Rita 3y3-1j70-4 l Gastroenter 97a-xd2091 H ermann ology c162ff Consultants 2014-05-14 2014-05-14 Refill on [facility] 6d65f 244-7 Memoria 17:25:00 17:25:00 Meds r Rita 720-434d-a l Gastroenter 1t6-77a9p5 H ermann ology [id number] Consultants 2014-05-14 2014-05-14 Refill on [facility] e145d 3b1-b Memoria 16:25:00 16:25:00 Meds r Rita 59f-4156-b l Gastroenter 5da-3b6099 H ermann ology b0ab5a Consultants 2014-02-04 2014-02-04 Pantoprazo [facility] c75c 378d-9 Memoria 17:31:00 17:31:00 le r Rita 2y8-6245-5 l Gastroenter n5u-6u6644 H ermann ology 6dda4b Consultants 2014-02-04 2014-02-04 Pantoprazo [facility] 24e4 0407-2 Memoria 17:31:00 17:31:00 le r Rita 504-48af-b l Gastroenter 3ae-6c0feb H ermann ology s39781 Consultants 2014-02-04 2014-02-04 Pantoprazo [facility] 3372 2839-3 Memoria 17:31:00 17:31:00 le r Rita f7r-2j9m-a l Gastroenter 3l0-z5a05c H ermann ology 4a4fb8 Consultants 2014-02-04 2014-02-04 Pantoprazo [facility] 2112 21b4-5 Memoria 17:31:00 17:31:00 le r Rita f75-0294-5 l Gastroenter de0-fed09b H ermann ology 9d37e4 Consultants 2014-02-04 2014-02-04 Pantoprazo [facility] 1b28 406d-8 Memoria 16:31:00 16:31:00 le r Rita d3b-4117-x l Gastroenter 65b-47b2ff H ermann ology 101011 Consultants 2014-02-04 2014-02-04 Pantoprazo [facility] 41e0 eb7c-2 Memoria 16:31:00 16:31:00 le r Rita 92e-46a2-a l Gastroenter 5r2-63a3ye H ermann ology 0994ce Consultants Results Test Description Test Time Test Comments Results Result Comments Source TROPONIN I 2021-07-13 19:16:34 Test Item Value Reference Range Interpretation Comme nts TROPONIN I (test code = 0.004 ng/mL See_Comment [Au tomated message] The 1105458986) system which ge nerated this result tra nsmitted reference range : <=0.034. The reference r clyde was not used to int erpret this result as normal/abnormal . DIONICIO (test code = DIONICIO) Reference (Normal) Range (defined by the 99th percentile reference limit): <= 0.034 ng/mL Note: Cardiac troponin begins to rise 3-4 hours after the onset of ischemia. Repeat in 4-6 hours if the sample was drawn within 3-4 hours of the onset of the symptom and found normal. Diagnosis of myocardial injury is made with acute changes in cTn concentrations with at least one serial sample above the 99th percentile upper reference limit (URL), taken together with the patient's clinical presentation. Biotin has been reported to cause a negative bias, interpret results relative to patient's use of biotin. Lab Interpretation Normal (test code = 50872-4) [facility]. METABOLIC PANEL (29184)2021-07-13 19:05:50 Test Item Value Reference Range Interpretation Comments NA (test code = 139 mmol/L 135-145 2289816282) K (test code = 4.2 mmol/L 3.5-5.0 8831374978) CL (test code = 107 mmol/L 98-108 3742179921) CO2 TOTAL (test code = 22 mmol/L 23-31 L 9878635789) AGAP (test code = 2-16 6973979096) BUN (test code = 19 mg/dL 7-23 8958994421) GLUCOSE (test code = 161 mg/dL 70-110 H 7158746539) CREATININE (test code = 0.97 mg/dL 0.50-1.04 2091124350) TOTAL BILI (test code = 0.4 mg/dL 0.1-1.1 5326770224) CALCIUM (test code = 9.1 mg/dL 8.6-10.6 2403151818) T PROTEIN (test code = 7.3 g/dL 6.3-8.2 3215538784) ALBUMIN (test code = 4.3 g/dL 3.5-5.0 9304494812) ALK PHOS (test code = 167 U/L 34-122 H 7304122584) ALTv (test code = 24 U/L 5-35 1742-6) AST(SGOT) (test code = 29 U/L 13-40 2862362033) eGFR (test code = mL/min/1.73m2 3818914514) DIONICIO (test code = DIONICIO) Association of Glomerular Filtration Rate (GFR) and Staging of Kidney Disease* + --+ --+ ------+| GFR (mL/min/1.73 m2) ?| With Kidney Damage ?| ?Without Kidney Damage+ --------+ --------+ +| ?>90 ?| ?Stage one ?| ? Normal ?+ ---+ ---+ -------+| ?60-89 ?| ?Stage two ?| ? Decreased GFR ? + --+ --+ ------+| ?30-59 ?| ?Stage three ?| ? Stage three ? + --+ --+ ------+| ?15-29 ?| ?Stage four ? | ? Stage four ?+ ---+ ---+ -------+| ?<15 (or dialysis) ? ?| ?Stage five ? | ? Stage five ?+ ---+ ---+ -------+ *Each stage assumes the associated GFR level has been in effect for at least three months. ?Stages 1 to 5, with or without kidney disease, indicate chronic kidney disease. Notes: Determination of stages one and two (with eGFR >59mL/min/1.73 m2) requires estimation of kidney damage for at least three months as defined by structural or functional abnormalities of the kidney, manifested by either:Pathological abnormalities or Markers of kidney damage (including abnormalities in the composition of the blood or urine or abnormalities in imaging tests). Lab Interpretation Abnormal (test code = 71460-4) [facility] WITH [id number] 18:58:49 Test Item Value Reference Range Interpretation Comments WBC (test code = See_Comment [Automated 5929-2) message] The sy stem which generated this result transmitted reference range : 4.30 - 11.10 10*3/?L. The reference range was not used to interpret this result as normal/abnormal . RBC (test code = See_Comment [Automated 580-3) message] The sy stem which generated this result transmitted reference range : 3.93 - 5.25 10*6/?L. The reference range was not used to interpret this result as normal/abnormal . HGB (test code = 12.4 g/dL 11.6-15.0 718-7) HCT (test code = 39.0 % 35.7-45.2 4544-3) MCV (test code = 91.1 fL 80.6-95.5 787-2) MCH (test code = 29.0 pg 25.9-32.8 785-6) MCHC (test code = 31.8 g/dL 31.6-35.1 786-4) RDW-SD (test code = 51.3 fL 39.0-49.9 H 82219-0) RDW-CV (test code = 15.5 % 12.0-15.5 788-0) PLT (test code = See_Comment [Automated 777-3) message] The sy stem which generated this result transmitted reference range : 166 - 358 10*3/ ?L. The reference r clyde was not used to interpret this result as normal/abnormal . MPV (test code = 10.2 fL 9.5-12.9 15761-6) NRBC/100 WBC (test See_Comment [Automat ed code = 5126709755) message] The system which generated this result transmitted reference range : 0.0 - 10.0 /100 WBCs. The refer ence range was not u sed to interpret th is result as normal/abnormal . NRBC x10^3 (test code <0.01 See_Comment [Auto mated = 6361899199) message] The s ystem which generated this result transmitted reference range : 10*3/?L. The reference range was not used to interpret this result as normal/abnormal . GRAN MAT (NEUT) % 56.6 % (test code = 770-8) IMM GRAN % (test code 0.40 % = 1875983884) LYMPH % (test code = 30.1 % 736-9) MONO % (test code = 6.9 % 5905-5) EOS % (test code = 4.9 % 713-8) BASO % (test code = 1.1 % 706-2) GRAN MAT x10^3(ANC) 3.10 10*3/uL 1.88-7.09 (test code = 4396786252) IMM GRAN x10^3 (test <0.03 0.00-0.06 code = 9923919269) LYMPH x10^3 (test code 1.65 10*3/uL 1.32-3.29 = 731-0) MONO x10^3 (test code 0.38 10*3/uL 0.33-0.92 = 742-7) EOS x10^3 (test code = 0.27 10*3/uL 0.03-0.39 711-2) BASO x10^3 (test code 0.06 10*3/uL 0.01-0.07 = 704-7) Lab Interpretation Abnormal (test code = 26616-7) [facility]00 Test Item Value Reference Range Interpretation Comments MAGNESIUM (BEAKER) (test code = 1.7 mg/dL 1.5-3.0 627) Law Clerk ID - LITOOperator ID - LITOOperator ID - LITOOperator ID - LITOBASIC METABOLIC [id number] 05:56:00 Test Item Value Reference Range Interpretation Comments SODIUM (BEAKER) 143 meq/L 135-148 (test code = 381) POTASSIUM (BEAKER) 3.5 meq/L 3.6-5.5 L (test code = 379) CHLORIDE (BEAKER) 110 meq/L 98-106 H (test code = 382) CO2 (BEAKER) (test 23 meq/L 20-29 code = 355) BLOOD UREA NITROGEN 7 mg/dL 10-26 L (BEAKER) (test code = 354) CREATININE (BEAKER) 0.91 mg/dL 0.50-1.20 (test code = 358) GLUCOSE RANDOM 104 mg/dL 70-110 (BEAKER) (test code = 652) CALCIUM (BEAKER) 9.0 mg/dL 8.5-10.5 (test code = 697) EGFR (BEAKER) (test 61 mL/min/1.73 ESTIMA KUSHAL GFR IS code = 1092) sq m NOT ACCURATE CREATININE CLEARANCE IN PREDICTING GLOMERULAR FILTRATION RATE . ESTIMATED GFR I S NOT APPLICABLE FOR DIALYSIS PATIEN TS. Law Clerk ID - LITOOperator ID - LITOOperator ID - LITOOperator ID - LITOOperator ID - LITOOperator ID - LITOOperator ID - LITOOperator ID - LITOOperator ID - LITOOperator ID - LITOCBC W/PLT COUNT & AUTO [id number] 05:30:00 Test Item Value Reference Range Interpretation Comments WHITE BLOOD CELL COUNT (BEAKER) 5.1 K/ L 4.0-10.0 (test code = 775) RED BLOOD CELL COUNT (BEAKER) 3.61 M/ L 4.00-5.00 L (test code = 761) HEMOGLOBIN (BEAKER) (test code = 9.6 GM/DL 12.0-15.5 L 410) HEMATOCRIT (BEAKER) (test code = 29.8 % 36.0-46.0 L 411) MEAN CORPUSCULAR VOLUME (BEAKER) 82.5 fL 82.0-99.0 (test code = 753) MEAN CORPUSCULAR HEMOGLOBIN 26.6 pg 27.0-33.0 L (BEAKER) (test code = 751) MEAN CORPUSCULAR HEMOGLOBIN CONC 32.2 GM/DL 32.0-36.0 (BEAKER) (test code = 752) RED CELL DISTRIBUTION WIDTH 15.8 % 12.0-15.0 H (BEAKER) (test code = 412) PLATELET COUNT (BEAKER) (test 334 K/CU MM 150-430 code = 756) MEAN PLATELET VOLUME (BEAKER) 9.6 fL 6.0-11.5 (test code = 754) NUCLEATED RED BLOOD CELLS 0 /100 WBC 0-0 (BEAKER) (test code = 413) NEUTROPHILS RELATIVE PERCENT 42 % (BEAKER) (test code = 429) LYMPHOCYTES RELATIVE PERCENT 44 % (BEAKER) (test code = 430) MONOCYTES RELATIVE PERCENT 8 % (BEAKER) (test code = 431) EOSINOPHILS RELATIVE PERCENT 5 % (BEAKER) (test code = 432) BASOPHILS RELATIVE PERCENT 1 % (BEAKER) (test code = 437) NEUTROPHILS ABSOLUTE COUNT 2.15 K/ L 1.80-8.00 (BEAKER) (test code = 670) LYMPHOCYTES ABSOLUTE COUNT 2.26 K/ L 1.48-4.50 (BEAKER) (test code = 414) MONOCYTES ABSOLUTE COUNT (BEAKER) 0.41 K/ L 0.00-1.30 (test code = 415) EOSINOPHILS ABSOLUTE COUNT 0.23 K/ L 0.00-0.50 (BEAKER) (test code = 416) BASOPHILS ABSOLUTE COUNT (BEAKER) 0.04 K/ L 0.00-0.20 (test code = 417) IMMATURE GRANULOCYTES-RELATIVE 0 % 0-0 PERCENT (BEAKER) (test code = 2801) PROTHROMBIN [id number] 13:29:00 Test Item Value Reference Range Interpretation Comments PROTIME (BEAKER) 11.3 seconds 9.3-12.0 Final Infor mation (test code = 759) (Auto Outp ut) INR (BEAKER) (test 1.02 See_Comment Final Inf ormation code = 370) (Auto Output) [Automated mess age] The system [employer] generated this result transmitted ref erence range: <=5.90. The reference range was not used to int erpret this result as normal/abnormal . RECOMMENDED COUMADIN/WARFARIN INR THERAPY RANGESSTANDARD DOSE: 2.0 - 3.0 Includes: PROPHYLAXIS forvenous thrombosis, systemic embolization; TREATMENT for venous thrombosis and/or pulmonary embolus.HIGH RISK: Target INR is 2.5-3.5 for patients with mechanical heart valves.[id number] 13:29:00 Test Item Value Reference Range Interpretation Comments PARTIAL THROMBOPLASTIN 25.2 seconds 23.0-35.0 Final Information TIME (BEAKER) (test (Auto Ou tput) code = 760) [id number] 13:12:00 Test Item Value Reference Range Interpretation Comments MAGNESIUM (BEAKER) (test code = 1.6 mg/dL 1.5-3.0 627) Law Clerk ID - CHARLENEOperator ID - CHARLENEOperator ID - CHARLENEOperator ID - CHARLENECOMPREHENSIVE METABOLIC [id number] 13:12:00 Test Item Value Reference Range Interpretation Comments TOTAL PROTEIN 6.7 gm/dL 6.0-8.5 (BEAKER) (test code = 770) ALBUMIN (BEAKER) 3.7 g/dL 3.5-5.0 (test code = 1145) ALKALINE PHOSPHATASE 152 U/L 30-115 H (BEAKER) (test code = 346) BILIRUBIN TOTAL 0.5 mg/dL 0.1-1.2 (BEAKER) (test code = 377) SODIUM (BEAKER) (test 140 meq/L 135-148 code = 381) POTASSIUM (BEAKER) 3.7 meq/L 3.6-5.5 (test code = 379) CHLORIDE (BEAKER) 108 meq/L 98-106 H (test code = 382) CO2 (BEAKER) (test 22 meq/L 20-29 code = 355) BLOOD UREA NITROGEN 10 mg/dL 10-26 (BEAKER) (test code = 354) CREATININE (BEAKER) 1.06 mg/dL 0.50-1.20 (test code = 358) GLUCOSE RANDOM 157 mg/dL 70-110 H (BEAKER) (test code = 652) CALCIUM (BEAKER) 9.0 mg/dL 8.5-10.5 (test code = 697) AST (SGOT) (BEAKER) 23 U/L 5-40 (test code = 353) ALT (SGPT) (BEAKER) 25 U/L 5-50 (test code = 347) EGFR (BEAKER) (test 51 mL/min/1.73 ESTIMA KUSHAL GFR IS code = 1092) sq m NOT ACCURATE CREATININE CLEARANCE IN PREDICTING GLOMERULAR FILTRATION RATE . ESTIMATED GFR I S NOT APPLICABLE FOR DIALYSIS PATIEN TS. Law Clerk ID - CHARLENEOperator ID - CHARLENEOperator ID - CHARLENEOperator ID - CHARLENEOperator ID - CHARLENEOperator ID - CHARLENEOperator ID - CHARLENEOperator ID - CHARLENEOperator ID - CHARLENEOperator ID - CHARLENEOperator ID - CHARLENEOperator ID - CHARLENEOperator ID - CHARLENEOperator ID - CHARLENEOperator ID - CHARLENEOperator ID - CHARLENECBC W/PLT COUNT & AUTO [id number] 13:00:00 Test Item Value Reference Range Interpretation Comments WHITE BLOOD CELL COUNT (BEAKER) 5.1 K/ L 4.0-10.0 (test code = 775) RED BLOOD CELL COUNT (BEAKER) 3.74 M/ L 4.00-5.00 L (test code = 761) HEMOGLOBIN (BEAKER) (test code = 10.0 GM/DL 12.0-15.5 L 410) HEMATOCRIT (BEAKER) (test code = 31.6 % 36.0-46.0 L 411) MEAN CORPUSCULAR VOLUME (BEAKER) 84.5 fL 82.0-99.0 (test code = 753) MEAN CORPUSCULAR HEMOGLOBIN 26.7 pg 27.0-33.0 L (BEAKER) (test code = 751) MEAN CORPUSCULAR HEMOGLOBIN CONC 31.6 GM/DL 32.0-36.0 L (BEAKER) (test code = 752) RED CELL DISTRIBUTION WIDTH 15.7 % 12.0-15.0 H (BEAKER) (test code = 412) PLATELET COUNT (BEAKER) (test 332 K/CU MM 150-430 code = 756) MEAN PLATELET VOLUME (BEAKER) 9.1 fL 6.0-11.5 (test code = 754) NUCLEATED RED BLOOD CELLS 0 /100 WBC 0-0 (BEAKER) (test code = 413) NEUTROPHILS RELATIVE PERCENT 52 % (BEAKER) (test code = 429) LYMPHOCYTES RELATIVE PERCENT 37 % (BEAKER) (test code = 430) MONOCYTES RELATIVE PERCENT 6 % (BEAKER) (test code = 431) EOSINOPHILS RELATIVE PERCENT 5 % (BEAKER) (test code = 432) BASOPHILS RELATIVE PERCENT 1 % (BEAKER) (test code = 437) NEUTROPHILS ABSOLUTE COUNT 2.66 K/ L 1.80-8.00 (BEAKER) (test code = 670) LYMPHOCYTES ABSOLUTE COUNT 1.87 K/ L 1.48-4.50 (BEAKER) (test code = 414) MONOCYTES ABSOLUTE COUNT (BEAKER) 0.31 K/ L 0.00-1.30 (test code = 415) EOSINOPHILS ABSOLUTE COUNT 0.24 K/ L 0.00-0.50 (BEAKER) (test code = 416) BASOPHILS ABSOLUTE COUNT (BEAKER) 0.03 K/ L 0.00-0.20 (test code = 417) IMMATURE GRANULOCYTES-RELATIVE 0 % 0-0 PERCENT (BEAKER) (test code = 2801) HEMOGLOBIN AND [id number] 13:00:00 Test Item Value Reference Range Interpretation Comments HEMOGLOBIN (BEAKER) (test code = 10.0 GM/DL 12.0-15.5 L 410) HEMATOCRIT (BEAKER) (test code = 31.6 % 36.0-46.0 L 411) SARS-CoV-2 (COVID-19) RNA [Presence] in Respiratory specimen by DENNIS with probe [id number] 22:54:54 Test Item Value Reference Range Interpretation Comments SARS-CoV-2 (COVID-19) RNA Not detected Not-Detected [Presence] in Respiratory specimen by DENNIS with probe detection (test code = 86313-5) CT CHEST PULMONARY [id number] 15:32:41 No acute pulmonary embolus to the subsegmental level. CTA chest-PE protocol Technique: Angiographic CT of the chest was performed with contrastadministration, and with creation of sagittal and coronal MIPreconstructions INTRAVENOUS CONTRAST ADMINISTRATION (mL Omnipaque 350): 100 DOSE REPORT (Total DLP mGy*cm): 161 FINDINGS: Pulmonary arteries: Contrast bolus timing is excellent for evaluation ofpulmonary to vasculature. No acute pulmonary embolus to the subsegmentallevel. Normal caliber of main pul monary artery. Lungs: Subcentimeter granuloma within the right lower lobe. Mild bilateraldependent atelectasis. Lungs otherwise clear. Airways: Central airways are patent. Pleura: ?No pleural effusion or pneumothorax. Mediastinum: Within normal limits Cardiovascular: ?Common origin of innominate andleft common carotidarteries. Suspected stenting in circumflex coronary distribution. Mildsclerotic calcifications and LAD and circumflex coronary distribution. Lower neck and chest wall: Within normal limits Upper abdomen: Status post cholecystectomy. Small sliding-type hiatalhernia. Bones: No acute or aggressive osseous abnormality. Cystic changes withinthe right femoral fat. Partially visualized cervical ACDF. [facility], Radiant Results Inft User - 07/16/2020 9:33 AM CSTCTA chest-PE protocolTechnique:Angiographic CT of the chest was performed with contrastadministration, and with creation of sagittal and coronal MIPreconstructionsINTRAVENOUS CONTRAST ADMINISTRATION (mL Omnipaque 350): 100DOSE REPORT (Total DLP mGy*cm): 161FINDINGS:Pulmonary arteries: Contrast bolus timing is excellent for evaluation ofpulmonary to vasculature. No acute pulmonary embolus to the subsegmentallevel. Normal caliber ofmain pulmonary artery. Lungs: Subcentimeter granuloma within the right lower lobe. Mild bilateraldependent atelectasis. Lungs otherwise clear. Airways: Central airways are patent.Pleura: No pleural effusion or pneumothorax.Mediastinum: Within normal limitsCardiovascular: Common origin of innominate and left common carotidarteries. Suspected stenting in circumflex coronary distribution. Mildsclerotic calcifications and LAD and circumflex coronary distribution.Lower neck and chest wall: Within normal limitsUpper abdomen: Status post cholecystectomy. Small sliding-type hiatalhernia.Bones: No acute or aggressive osseous abnormality. Cystic changes withinthe right femoral fat. Partially visualized cervical ACDF.IMPRESSIONNo acute pulmonary embolus to the subsegmental level.[facility] DallasD-[id number] 15:22:00 Test Item Value Reference Interpretation Comments Range D-DIMER (test code = See_Comment H [Autom ated [id number]) message] The system which generated this result transmitted reference range : <0.41 ?g/mL (FEU). The reference range was not used to interpret this result as normal/abnormal . DIONICIO (test code = This test may be DIONICIO) used in conjunction with a clinical pretest probability (PTP) assessment model to exclude venous thromboembolism (VTE) in patients suspected of deep venous thrombosis (DVT) and pulmonary embolism (PE) A D-Dimer value less than 0.50 ?g/ml (FEU) has a negative predicative value of 96 to 100% (95% CI)and 97 to 100% (95% CI) as an aid in the diagnosis of deep vein thrombosis (DVT) and pulmonary embolism when there is low or moderate pretest probability of PE or DVT. D-Dimer values are expressed in initial fibrinogen equivalent units (FEU)" The assay results should be used with other information, including the clinical context, in forming a diagnosis. Lab Interpretation Abnormal (test code = 40590-0) [facility] DallasTROPONIN [id number] 14:47:00 Test Item Value Reference Range Interpretation Comments TROPONIN I (test <0.012 See_Comment [Automated code = 5196385145) message] The system which generated this result transmitted reference range : <=0.034 ng/mL. The reference range was not used to interpr et this result as normal/abnormal . DIONICIO (test code = Equal or Less than DIONICIO) 0.034 ng/ml---Normal ?Note: Cardiac troponin begins to rise 3-4 hours after the onset of ischemia. Repeat in 4-6 hours if the sample was drawn within 3-4 hours of the onset of the symptom and found normal. Between 0.035 and 0.120 ng/mL--- Borderline. Questionable myocardial injury or necrosis ? ?Note: Serial measurement may be necessary to confirm or exclude the diagnosis of myocardial injury or necrosis; Clinical correlation (symptoms, EKGs, imaging studies, and others) required; Repeat in 4-6 hours if clinically indicated. ? Equal or Higher than 0.121 ng/mL---Abnormal. Myocardial Injury or Necrosis Likely ? Biotin has been reported to cause a negative bias, interpret results relative to patient's use of biotin. ? Lab Interpretation Normal (test code = 48941-3) [facility] DallasN-TERMINAL [id number] 14:44:00 Test Item Value Reference Range Interpretation Comments NT-proBNP (test code 114 pg/mL See_Comment [Autom ated = 0204840571) message] The system which generated this result transmitted reference range : <=125. The reference range was not used to interpret this result as normal/abnormal . DIONICIO (test code = DIONICIO) Biotin has been reported to cause a negative bias, interpret results relative to patient's use of biotin. Lab Interpretation Normal (test code = 64134-0) [facility] DallasCOVID-[facility] (ID NOW RAPID TESTING)2020-07-16 14:37:00 Test Item Value Reference Range Interpretation Comments SARS-CoV-2 Rapid ID NOW Not Detected Not Detected (test code = 69556-4) DIONICIO (test code = DIONICIO) ID NOW COVID-19 Assay is an isothermal nucleic acid amplification test intended for the qualitative detection of nucleic acid from SARS-CoV-2 viral RNA in nasopharyngeal (FLOOR SURFACER) specimens. It is used under Emergency Use Authorization (EUA) by FDA. The limit of detection (LOD) of the assay is 125 Genome Equivalents/mL. A positive result is indicative of the presence of SARS-CoV-2 RNA. ?Clinical correlation with patient history and other diagnostic information is necessary to determine patient infection status. A negative (Not Detected) result does not preclude SARS-CoV-2 infection. In patients with clinical symptoms and other tests that are consistent with SARS-CoV-2 infection, negative results should be treated as presumptive negative and a new specimen should be tested with alternative PCR molecular test. Invalid: Please collect a new specimen for repeat patient testing if clinically indicated. Lab Interpretation Normal (test code = 23135-9) [facility]. METABOLIC PANEL (96247)2020-07-16 14:37:00 Test Item Value Reference Range Interpretation Comments NA (test code = 136 mmol/L 135-145 5711882098) K (test code = 2.9 mmol/L 3.5-5 LL 1587304678) CL (test code = 93 mmol/L 98-108 L 2299306477) CO2 TOTAL (test code = 30 mmol/L 23-31 6206628617) AGAP (test code = 2-16 8481980158) BUN (test code = 28 mg/dL 7-23 H 3950233235) GLUCOSE (test code = 159 mg/dL 70-110 H 0447311541) CREATININE (test code = 1.19 mg/dL 0.5-1.04 H 2702588379) TOTAL BILI (test code = 0.9 mg/dL 0.1-1.1 0172100638) CALCIUM (test code = 9.9 mg/dL 8.6-10.6 9799300314) T PROTEIN (test code = 8.4 g/dL 6.3-8.2 H 2155846178) ALBUMIN (test code = 4.8 g/dL 3.5-5 4400727650) ALK PHOS (test code = 127 U/L 34-122 H 7915766197) ALTv (test code = 28 U/L 5-35 1742-6) AST(SGOT) (test code = 40 U/L 13-40 5516688035) eGFR Calculation mL/min/1.73m2 (Non-) (test code = 4305151794) eGFR Calculation mL/min/1.73m2 () (test code = 4782578593) DIONICIO (test code = DIONICIO) Association of Glomerular Filtration Rate (GFR) and Staging of Kidney Disease* + --+ --+ ------+| GFR (mL/min/1.73 m2) ?| With Kidney Damage ?| ?Without Kidney Damage+ --------+ --------+ +| ?>90 ?| ?Stage one ?| ? Normal ?+ ---+ ---+ -------+| ?60-89 ?| ?Stage two ?| ? Decreased GFR ? + --+ --+ ------+| ?30-59 ?| ?Stage three ?| ? Stage three ? + --+ --+ ------+| ?15-29 ?| ?Stage four ? | ? Stage four ?+ ---+ ---+ -------+| ?<15 (or dialysis) ? ?| ?Stage five ? | ? Stage five ?+ ---+ ---+ -------+ *Each stage assumes the associated GFR level has been in effect for at least three months. ?Stages 1 to 5, with or without kidney disease, indicate chronic kidney disease. Notes: Determination of stages one and two (with eGFR >59mL/min/1.73 m2) requires estimation of kidney damage for at least three months as defined by structural or functional abnormalities of the kidney, manifested by either:Pathological abnormalities or Markers of kidney damage (including abnormalities in the composition of the blood or urine or abnormalities in imaging tests). Lab Interpretation Abnormal (test code = 25199-6) [facility] DallasMAGNESIUM2021-01-22 14:36:00 Test Item Value Reference Range Interpretation Comments MAGNESIUM (test code = 5006570662) 2.1 mg/dL 1.7-2.4 Lab Interpretation (test code = Normal 92465-2) [facility] DallasLIPASE2021-01-22 14:35:00 Test Item Value Reference Range Interpretation Comments LIPASE (test code = 1488167449) 375 U/L 0-220 H Lab Interpretation (test code = Abnormal 33437-8) [facility] DallasACTIVATED PARTIAL THRMPLAS [id number] 14:33:00 Test Item Value Reference Range Interpretation Comments APTT Patient (test See_Comment [Automat ed code = 3173-2) message] The system which generated this result transmitted reference range : 23 - 38 Seconds . The reference range was not used to interpr et this result as normal/abnormal . DIONICIO (test code = DIONICIO) The [facility] patient population mean normal value for aPTT is 30 seconds. Lab Interpretation Normal (test code = 31118-8) [facility] DallasPROTHROMBIN TIME / [id number] 14:31:00 Test Item Value Reference Range Interpretation Comments PROTIME PATIENT (test See_Comment [Auto mated message] code = 5964-2) The system [employer] generated this result transmitted ref erence range: 12.0 - 1 4.7 Seconds. The re ference range was not u sed to interpret this result as normal/abnor mal. INR (test code = 6301-6) Nor mal INR <1.1; Warfarin Therap eutic range 2.0 to 3. 0 or 2.5 to 3.5, dep ending upon the indica tions. Lab Interpretation (test Normal code = 05829-2) [facility] WITH [id number] 14:26:00 Test Item Value Reference Range Interpretation Comments WBC (test code = See_Comment [Automated message] 6690-2) The system [employer] generated this result transmitted ref erence range: 4.30 - 1 1.10 10*3/?L. The re ference range was not u sed to interpret this result as normal/abnor mal. RBC (test code = See_Comment [Automated message] 889-8) The system [employer] generated this result transmitted ref erence range: 3.93 - 5 .25 10*6/?L. The re ference range was not u sed to interpret this result as normal/abnor mal. HGB (test code = 13.3 g/dL 11.6-15 718-7) HCT (test code = 40.2 % 35.7-45.2 4544-3) MCV (test code = 86.6 fL 80.6-95.5 787-2) MCH (test code = 28.7 pg 25.9-32.8 785-6) MCHC (test code = 33.1 g/dL 31.6-35.1 786-4) RDW-SD (test code 44.5 fL 39-49.9 = 99521-9) RDW-CV (test code 14.2 % 12-15.5 = 788-0) PLT (test code = See_Comment [Automated message] 277-3) The system [employer] generated this result transmitted ref erence range: 166 - 35 8 10*3/?L. The re ference range was not u sed to interpret this result as normal/abnor mal. MPV (test code = 9.9 fL 9.5-12.9 36938-3) NRBC/100 WBC (test See_Comment [Automat ed message] code = 8219230221) The syste m which generated this result transmitted ref erence range: 0.0 - 10 .0 /100 WBCs. The refer ence range was not u sed to interpret this result as normal/abnor mal. NRBC x10^3 (test <0.01 See_Comment [Automated message] code = 5687644673) The syste m which generated this result transmitted ref erence range: 10*3/?L. The reference range was not used to interpr et this result as normal/abnormal . GRAN MAT (NEUT) % 61.1 % (test code = 770-8) IMM GRAN % (test 0.30 % code = 5652515870) LYMPH % (test code 29.2 % = 736-9) MONO % (test code 6.7 % = 5905-5) EOS % (test code = 2.0 % 713-8) BASO % (test code 0.7 % = 706-2) GRAN MAT 4.59 10*3/uL 1.88-7.09 x10^3(ANC) (test code = 1182763847) IMM GRAN x10^3 <0.03 0-0.06 (test code = 0395648035) LYMPH x10^3 (test 2.19 10*3/uL 1.32-3.29 code = 731-0) MONO x10^3 (test 0.50 10*3/uL 0.33-0.92 code = 742-7) EOS x10^3 (test 0.15 10*3/uL 0.03-0.39 code = 711-2) BASO x10^3 (test 0.05 10*3/uL 0.01-0.07 code = 704-7) [facility] [Presence] in Respiratory specimen by DENNIS with probe [id number] 06:17:31 Test Item Value Reference Range Interpretation Comments SARS-CoV-2 (COVID-19) RNA Not detected Not-Detected [Presence] in Respiratory specimen by DENNIS with probe detection (test code = 20347-8) SARS-CoV-2 (COVID-19) RNA [Presence] in Respiratory specimen by DENNIS with probe [id number] 18:00:17 Test Item Value Reference Range Interpretation Comments SARS-CoV-2 (COVID-19) RNA Not detected Not-Detected [Presence] in Respiratory specimen by DENNIS with probe detection (test code = 75454-5)
[2021-08-04] MEDS ORDERED: ONDANSETRON 4 MG/2 ML VIAL ONE (19:37)
[2021-08-04] MEDS ORDERED: NA CHLORIDE 0.9% 500 ML ONE (19:37)
[2021-08-04] MEDS ORDERED: FAMOTIDINE 20 MG/2 ML VIAL IV ONE (19:37)
[2021-08-04] MEDS ORDERED: ALBUTEROL INHALER 60 PUFF/8 GM IH ONE (19:38)
[2021-08-04 19:53] LABS: Absolute Lymphocytes (CBC) 0.7 K/uL (0.7-4.9); Hematocrit 39.7 % (36.0-45.0); Lymphocytes % 5.4 % (15.3-44.8); MPV 7.4 fL (7.6-11.3); RBC Red Blood Cell Count 4.44 M/uL (3.86-4.86)
[2021-08-04 19:54] LABS: Protime INR 1.13
--- NOTE | 2021-08-04 20:27 | RAD REPORT ---
EXAM DESCRIPTION: RAD - Chest Single View - 08/04/2021 8:09 pm CLINICAL HISTORY: SOB COMPARISON: Head C Spine Mpr Wo Con dated 05/22/2020Chest Single View dated 12/05/2020; CHEST PA AND LAT 2 VIEW dated 02/07/2011; CHEST SINGLE VIEW dated 10/12/2008 FINDINGS: Lines: None. Lungs: Bilateral interstitial and airspace opacities. Pleural: No significant pleural effusions or pneumothorax. Cardiac: Cardiomegaly. Bones: No acute fractures. ACDF in the cervical spine. Other: IMPRESSION: Bilateral airspace disease favored to represent edema though multifocal pneumonia could appear similar.
[2021-08-04 21:10] LABS: SARS-COV-2 RT PCR POSITIVE (NEGATIVE)
[2021-08-04 21:15] LABS: Blood Morphology Comment NOT SEEN (NOT SEEN); Platelet Estimate ADEQ; White Blood Cell Scan OK (OK)
[2021-08-04 21:48] LABS: Urine Blood Negative (Negative); Urine Glucose Negative (Negative); Urine Protein Trace (Negative); Urine pH 6.5 (5.0-7.0)
[2021-08-04 21:49] LABS: Albumin 3.2 g/dL (3.4-5.0); Bilirubin Direct 0.2 mg/dL (0-0.2); Bilirubin Total 0.5 mg/dL (0.2-1.0); Potassium 4.1 mmol/L (3.5-5.1); Protein, Total 7.4 g/dL (6.4-8.2); Troponin High Sensitivity 4.7 pg/mL (<58.9)
[2021-08-04] MEDS ORDERED: AZITHROMYCIN 500 MG INJ IVPB ONE (22:26)
[2021-08-04] MEDS ORDERED: CEFTRIAXONE 1000 MG/VIAL ONE (22:26)
[2021-08-04] MEDS ORDERED: NA CHLORIDE 0.9% 250 ML ONE (22:27)
[2021-08-04] MEDS ORDERED: NA CHLORIDE 0.9% 0 ML ONE (22:27)
--- NOTE | 2021-08-04 22:30 | ER ---
Nurse's Notes [facility] Name: Amalia Bettencourt Age: 70 yrs Sex: Female : 1950 Arrival Date: 08/04/2021 Time: 18:44 Bed 5 Private MD: Diagnosis: Pneumonia due to SARS-associated coronavirus-Hypoxia Presentation: 08/04 18:44 Chief complaint: EMS states: SHORTNESS OF BREATH 2/2 COVID PNEUMONIA. SEEN AND D/C FROM LOCAL ER LAST TWO DAYS IN A ROW. Coronavirus screen: Client reports previous positive COVID test result. Ebola Screen: No symptoms or risks identified at this time. Initial Sepsis Screen: Does the patient meet any 2 criteria? No. Patient's initial sepsis screen is negative. Does the patient have a suspected source of infection? No. Patient's initial sepsis screen is negative. Risk Assessment: Do you want to hurt yourself or someone else? Patient reports no desire to harm self or others. Onset of symptoms is unknown. 18:44 Method Of Arrival: EMS: [facility] bp 18:44 Acuity: TASIA 3 bp Triage Assessment: 18:46 General: Appears distressed, obese, Behavior is cooperative, appropriate for age, bp anxious. Pain: Denies pain. EENT: No deficits noted. Neuro: Level of Consciousness is awake, alert, obeys commands, Oriented to Appropriate for age Reports weakness GENERALIZED. Cardiovascular: No deficits noted. Respiratory: Reports shortness of breath cough that is Breath sounds are clear bilaterally. Onset: The symptoms/episode began/occurred at an unknown time. the patient has mild shortness of breath. GI: No signs and/or symptoms were reported involving the gastrointestinal system. : No signs and/or symptoms were reported regarding the genitourinary system. Derm: No deficits noted. Musculoskeletal: No deficits noted. Historical: - Allergies: 18:46 No Known Allergies; bp - Home Meds: 18:46 Alprazolam Oral [Active]; Aspirin Oral [Active]; Ondansetron Oral [Active]; prasugrel bp Oral [Active]; - PMHx: 18:46 ulcerative collitis; abdominal hernia; bp - Immunization history:: Adult Immunizations up to date. - Social history:: Smoking status: unknown. Screenin:48 Abuse screen: Denies threats or abuse. Denies injuries from another. Nutritional bp screening: No deficits noted. Tuberculosis screening: No symptoms or risk factors identified. Fall Risk None identified. Assessment: 18:48 General: SEE TRIAGE NOTE. bp 18:51 Cardiovascular: No deficits noted. Cardiovascular: Heart tones S1 S2 Rhythm is sinus ss7 tachycardia. Respiratory: Airway is patent Respiratory effort is even, unlabored, Breath sounds are diminished bilaterally. GI: No deficits noted. : No deficits noted. EENT: No deficits noted. Derm: No deficits noted. Musculoskeletal: No deficits noted. 20:22 Reassessment: No changes from previously documented assessment. Patient and/or family sm5 updated on plan of care and expected duration. Pain level reassessed. 21:30 Reassessment: No changes from previously documented assessment. Patient and/or family ll3 updated on plan of care and expected duration. Pain level reassessed. 22:58 Reassessment: Patient and/or family updated on plan of care and expected duration. Pain ll3 level reassessed. 08/05 00:08 Reassessment: Patient and/or family updated on plan of care and expected duration. Pain ll3 level reassessed. Vital Signs: 08/04 18:44 BP 139 / 72; Pulse 81; Resp 20; Pulse Ox 99% on R/A; bp 18:51 BP 144 / 72; Pulse 103; Resp 20; Temp 98.1; Pulse Ox 99% on 2 lpm NC; ss7 20:22 BP 176 / 84; Pulse 109; Resp 22; Pulse Ox 97% on R/A; sm5 21:30 BP 142 / 60; Pulse 106; Resp 24; Pulse Ox 96% ; ll3 22:59 BP 119 / 65; Pulse 98; Resp 26; Pulse Ox 98% ; ll3 08/05 00:08 BP 168 / 80; Pulse 101; Resp 19; Pulse Ox 96% ; ll3 ED Course: 08/04 18:44 Patient arrived in ED. bp 18:46 Triage completed. bp 18:46 Arm band placed on. bp 18:48 Patient has correct armband on for positive identification. Bed in low position. Call bp light in reach. Side rails up X2. 19:03 Andrew Braswell MD is Attending Physician. 7 19:15 Sana Adan RN is Primary Nurse. st1 19:40 Inserted saline lock: 20 gauge in right antecubital area, using aseptic technique. ab2 Blood collected. 19:41 Procalcitonin Sent. ab2 19:42 COVID-19/FLU A+B/RSV (Document "Date of Onset" if Symptomatic) Sent. ab2 19:42 Basic Metabolic Panel Sent. ab2 19:42 CBC with Diff Sent. ab2 19:42 LFT's Sent. ab2 19:42 Magnesium Sent. ab2 19:42 NT PRO-BNP Sent. ab2 19:42 PT-INR Sent. ab2 19:42 Troponin HS Sent. ab2 20:09 XRAY Chest (1 view) In Process Unspecified. EDMS 22:28 Henry Fabian is Hospitalizing Provider. [facility] 08/05 00:09 No provider procedures requiring assistance completed. Patient admitted, IV remains in ll3 place. No redness/swelling at site. Administered Medications: 08/04 19:52 Drug: Zofran (Ondansetron) 4 mg Route: IVP; Site: right antecubital; 5 22:56 Follow up: Response: No adverse reaction ll3 19:57 Drug: NS 0.9% 500 ml Route: IV; Rate: bolus; Site: right antecubital; sm5 22:56 Follow up: Response: No adverse reaction; IV Status: Completed infusion; IV Intake: ll3 500ml 19:57 Drug: Pepcid (famotidine) 20 mg Route: IVP; Site: right antecubital; sm5 19:57 Not Given (Patient Refused): Albuterol HFA Inhaler 2 puffs Inhalation once 5 21:55 Drug: Zithromax (azithromycin) 500 mg Route: IVPB; Infused Over: 1 hrs; Site: right st1 antecubital; 22:41 Drug: Rocephin (cefTRIAXone) 1 grams Route: IV; Rate: per protocol; Site: right ll3 antecubital; 22:55 Drug: SOLU-Medrol (methylPrednisoLONE) 80 mg Route: IVP; Site: right antecubital; ll3 Intake: 22:56 IV: 500ml; Total: 500ml. ll3 Outcome: 22:29 Decision to Hospitalize by Provider. [facility] 08/05 00:09 Admitted to Tele accompanied by nurse, via wheelchair, room 406, with chart, Report ll3 called to STEPHY Alfaro Condition: stable Instructed on the need for admit. 00:10 Patient left the ED. ll3 Signatures: Dispatcher [employer] EDDayron Archuleta, RN RN Andrew Bae MD MD 7 Dylon Meyer RN RN ll3 Celeste Watts RN RN sm5 Nigel Davies Shellie RN RN st1 Alice Mclean RN RN ss7
--- NOTE | 2021-08-04 22:30 | EDPHYS ---
Physician Documentation [facility] Name: Amalia Bettencourt Age: 70 yrs Sex: Female : 1950 Arrival Date: 08/04/2021 Time: 18:44 Bed 5 Private MD: ED Physician Andrew Braswell HPI: 08/04 19:17 This 70 yrs old Female presents to ER via EMS with complaints of Shortness Of Breath. mh7 19:17 The patient has shortness of breath at rest, with light activity. Onset: The mh7 symptoms/episode began/occurred 5 day(s) ago. Duration: The symptoms are intermittent, with no pattern. The patient's shortness of breath is aggravated by coughing, exertion, light activity, is alleviated by nothing. Associated signs and symptoms: Pertinent positives: non-productive cough, nausea, Pertinent negatives: chest pain, productive cough, diaphoresis, dizziness, fever, hemoptysis, loss of consciousness, numbness in extremities, visual changes, vomiting. Severity of symptoms: At their worst the symptoms were moderate 2 day(s) ago, in the emergency department the symptoms are unchanged despite EMS interventions. Recently tested positive for COVID.. Historical: - Allergies: 18:46 No Known Allergies; bp - Home Meds: 18:46 Alprazolam Oral [Active]; Aspirin Oral [Active]; Ondansetron Oral [Active]; prasugrel bp Oral [Active]; - PMHx: 18:46 ulcerative collitis; abdominal hernia; bp - Immunization history:: Adult Immunizations up to date. - Social history:: Smoking status: unknown. ROS: 19:17 Constitutional: Negative for fever, chills, and weight loss, Eyes: Negative for injury, mh7 pain, redness, and discharge, ENT: Negative for injury, pain, and discharge, Neck: Negative for injury, pain, and swelling, Cardiovascular: Negative for chest pain, palpitations, and edema. 19:17 Back: Negative for injury and pain, : Negative for injury, bleeding, discharge, and swelling, MS/Extremity: Negative for injury and deformity, Skin: Negative for injury, rash, and discoloration, Neuro: Negative for headache, weakness, numbness, tingling, and seizure, Psych: Negative for depression, anxiety, suicide ideation, homicidal ideation, and hallucinations, Allergy/Immunology: Negative for hives, rash, and allergies, Endocrine: Negative for neck swelling, polydipsia, polyuria, polyphagia, and marked weight changes, Hematologic/Lymphatic: Negative for swollen nodes, abnormal bleeding, and unusual bruising. 19:17 Abdomen/GI: Negative for abdominal pain, vomiting, diarrhea, constipation, abdominal cramps, abdominal distension, anorexia, dysphagia, hematemesis, black/tarry stool, rectal pain, rectal bleeding, bowel incontinence, flatulence. Exam: 19:17 Head/Face: Normocephalic, atraumatic. Eyes: Pupils equal round and reactive to light, mh7 extra-ocular motions intact. Lids and lashes normal. Conjunctiva and sclera are non-icteric and not injected. Cornea within normal limits. Periorbital areas with no swelling, redness, or edema. Neck: Trachea midline, no thyromegaly or masses palpated, and no cervical lymphadenopathy. Supple, full range of motion without nuchal rigidity, or vertebral point tenderness. No Meningismus. Chest/axilla: Normal chest wall appearance and motion. Nontender with no deformity. No lesions are appreciated. 19:17 Abdomen/GI: Soft, non-tender, with normal bowel sounds. No distension or tympany. No guarding or rebound. No evidence of tenderness throughout. Back: No spinal tenderness. No costovertebral tenderness. Full range of motion. Skin: Warm, dry with normal turgor. Normal color with no rashes, no lesions, and no evidence of cellulitis. MS/ Extremity: Pulses equal, no cyanosis. Neurovascular intact. Full, normal range of motion. Neuro: Awake and alert, GCS 15, oriented to person, place, time, and situation. Cranial nerves II-XII grossly intact. Motor strength 5/5 in all extremities. Sensory grossly intact. Cerebellar exam normal. Normal gait. Psych: Awake, alert, with orientation to person, place and time. Behavior, mood, and affect are within normal limits. 19:17 Constitutional: The patient appears in no acute distress, alert, awake, uncomfortable. 19:17 Cardiovascular: Rate: tachycardic, Rhythm: regular, Pulses: no pulse deficits are appreciated, Heart sounds: normal, normal S1and S2, Edema: is not appreciated, JVD: is not appreciated. 19:17 Respiratory: the patient does not display signs of respiratory distress, Respirations: prolonged exhalation, that is mild, Breath sounds: rhonchi, that are mild, are scattered, Respiratory rate: 20 Vital Signs: 18:44 BP 139 / 72; Pulse 81; Resp 20; Pulse Ox 99% on R/A; bp 18:51 BP 144 / 72; Pulse 103; Resp 20; Temp 98.1; Pulse Ox 99% on 2 lpm NC; ss7 20:22 BP 176 / 84; Pulse 109; Resp 22; Pulse Ox 97% on R/A; sm5 21:30 BP 142 / 60; Pulse 106; Resp 24; Pulse Ox 96% ; ll3 22:59 BP 119 / 65; Pulse 98; Resp 26; Pulse Ox 98% ; ll3 08/05 00:08 BP 168 / 80; Pulse 101; Resp 19; Pulse Ox 96% ; ll3 MDM: 08/04 22:27 Differential diagnosis: Anemia Anxiety Reaction asthma, Bronchitis CHF exacerbation, [facility] Chronic Obstructive Pulmonary Disease Myocardial Infarction pneumonia, Pneumothorax Psychogenic pulmonary edema, Pulmonary Embolism reactive airway disease. Data reviewed: vital signs, nurses notes, EMS record, old medical records, lab test result(s), cardiac enzymes, CBC, electrolytes, EKG, radiologic studies, plain films. Data interpreted: Pulse oximetry: on 3L(s) per nasal canula, is 97 %. Interpretation: acceptable. Counseling: I had a detailed discussion with the patient and/or guardian regarding: the historical points, exam findings, and any diagnostic results supporting the discharge/admit diagnosis, the presence of at least one elevated blood pressure reading (>120/80) during this emergency department visit, lab results, radiology results, the need for further work-up and treatment in the hospital. Response to treatment: the patient's symptoms have mildly improved after treatment. 22:29 Patient medically screened. [facility] 08/04 19:06 Order name: Basic Metabolic Panel [facility] 08/04 19:06 Order name: CBC with Diff; Complete Time: 21:29 [facility] 08/04 19:06 Order name: LFT's [facility] 08/04 19:06 Order name: Magnesium [facility] 08/04 19:06 Order name: NT PRO-BNP [facility] 08/04 19:06 Order name: PT-INR; Complete Time: 20:12 [facility] 08/04 19:06 Order name: Troponin HS [facility] 08/04 19:08 Order name: COVID-19/FLU A+B/RSV (Document "Date of Onset" if Symptomatic); Complete [facility] Time: 21:14 08/04 19:16 Order name: Lipase; Complete Time: 22:26 [facility] 08/04 19:16 Order name: Blood Culture Adult (2) [facility] 08/04 19:16 Order name: Lactate; Complete Time: 21:14 [facility] 08/04 19:16 Order name: Procalcitonin; Complete Time: 22:26 [facility] 08/04 21:16 Order name: CBC Smear Scan [facility] 08/04 19:06 Order name: XRAY Chest (1 view); Complete Time: 20:30 [facility] 08/04 19:06 Order name: EKG; Complete Time: 19:07 [facility] 08/04 19:06 Order name: Cardiac monitoring; Complete Time: 19:42 [facility] 08/04 19:06 Order name: EKG - Nurse/Tech; Complete Time: 19:42 [facility] 08/04 19:06 Order name: IV Saline Lock; Complete Time: 19:42 [facility] 08/04 19:06 Order name: Labs collected and sent; Complete Time: 19:42 [facility] 08/04 19:06 Order name: O2 Per Protocol; Complete Time: 19:42 [facility] 08/04 21:47 Order name: Urine Dipstick-Ancillary; Complete Time: 21:51 [facility] 08/04 21:52 Order name: D-Dimer [facility] 08/04 19:06 Order name: O2 Sat Monitoring; Complete Time: 19:42 [facility] Administered Medications: 19:52 Drug: Zofran (Ondansetron) 4 mg Route: IVP; Site: right antecubital; sm5 22:56 Follow up: Response: No adverse reaction ll3 19:57 Drug: NS 0.9% 500 ml Route: IV; Rate: bolus; Site: right antecubital; sm5 22:56 Follow up: Response: No adverse reaction; IV Status: Completed infusion; IV Intake: ll3 500ml 19:57 Drug: Pepcid (famotidine) 20 mg Route: IVP; Site: right antecubital; sm5 19:57 Not Given (Patient Refused): Albuterol HFA Inhaler 2 puffs Inhalation once sm5 21:55 Drug: Zithromax (azithromycin) 500 mg Route: IVPB; Infused Over: 1 hrs; Site: right st1 antecubital; 22:41 Drug: Rocephin (cefTRIAXone) 1 grams Route: IV; Rate: per protocol; Site: right ll3 antecubital; 22:55 Drug: SOLU-Medrol (methylPrednisoLONE) 80 mg Route: IVP; Site: right antecubital; ll3 Disposition Summary: 08/04/21 22:29 Hospitalization Ordered Hospitalization Status: Inpatient Admission [facility] Provider: Henry Fabian [facility] Location: Telemetry/MedSurg (Inpatient) [facility] Condition: Stable [facility] Problem: new [facility] Symptoms: have improved [facility] Bed/Room Type: Standard [facility] Room Assignment: 406(08/04/21 22:48) eb1 Diagnosis - Pneumonia due to SARS-associated coronavirus - Hypoxia [facility] Forms: - Medication Reconciliation Form [facility] - SBAR form [facility] Signatures: Dispatcher [employer] [facility] Dayron Hodgson RN RN Jacinda Meng RN RN eb1 Andrew Braswell MD MD 7 Dylon Meyer RN RN ll3 Celeste Watts RN RN sm5 Sana Adan RN RN st1 Corrections: (The following items were deleted from the chart) 21:05 19:07 Arterial Blood Gas+[id number].LAB.BRZ ordered. [facility] EDMS 22:48 22:29 7 eb1
[2021-08-04] MEDS ORDERED: METHYLPREDNISOLONE 40 MG INJ ONE (22:50)
[2021-08-05] MEDS ORDERED: ONDANSETRON 4 MG/2 ML VIAL IV PRN (00:24)
[2021-08-05] MEDS ORDERED: MELATONIN 5 MG TABLET PO PRN (00:24)
--- NOTE | 2021-08-05 00:43 | P.HP ---
Certification for Inpatient Patient admitted to: Inpatient With expected LOS: <2 Midnights Patient will require the following post-hospital care: None Practitioner: I am a practitioner with admitting privileges, knowledge of patient current condition, hospital course, and medical plan of care. Services: Services provided to patient in accordance with Admission requirements found in Title 42 Section 412.3 of the Code of Federal Regulations <Alvin Davis - Last Filed: 08/05/21 00:38> Patient History Date of Service: 08/04/21 Reason for admission: covid pneumonia History of Present Illness: Ms. Bettencourt is a 70 yo F with CAD and anxiety who presents with COVID+ diagnosis one week ago. She says for the past 5 days she has had increasing shortness of breath, cough, and nausea. Denies fever, vomiting. She is requiring 2L NC at bedside. In the ED she received IV fluids and antibiotics. WBC 13.8 Glu 138 CXR IMPRESSION: Bilateral airspace disease favored to represent edema though multifocal pneumonia could appear similar. - Past Medical/Surgical History -: CAD -: cardiac stent - Social History Smoking Status: Unknown if ever smoked Alcohol use: No CD- Drugs: No Caffeine use: No Place of Residence: Home <Alvin Davis - Last Filed: 08/05/21 00:38> Date of Service: 08/04/21 <Aditi Hopson - Last Filed: 08/08/21 00:56> Allergies No Known Allergies Allergy (Unverified 08/04/21 23:27) Review of Systems General: Malaise Eyes: Unremarkable ENT: Unremarkable Respiratory: Cough, Shortness of Breath, SOB with Excertion Cardiovascular: Unremarkable Gastrointestinal: Nausea Genitourinary: Unremarkable Musculoskeletal: Unremarkable Integumentary: Unremarkable Neurological: Unremarkable Lymphatics: Unremarkable <Alvin Davis - Last Filed: 08/05/21 00:38> Physical Examination - Physical Exam General: Alert, In no apparent distress HEENT: Atraumatic, PERRLA, Mucous membr. moist/pink, EOMI, Sclerae nonicteric Neck: Supple, 2+ carotid pulse no bruit, No LAD, Without JVD or thyroid abnormality Respiratory: Normal air movement, Rhonchi/gurgles Cardiovascular: No edema, Regular rate/rhythm, Normal S1 S2 Gastrointestinal: Normal bowel sounds, No tenderness Musculoskeletal: No tenderness Integumentary: No rashes Neurological: Normal speech, Normal strength at 5/5 x4 extr, Normal tone, Normal affect Lymphatics: No axilla or inguinal lymphadenopathy - Studies Laboratory Data (last 24 hrs) 08/04/21 17:30: Lipase 168 08/04/21 17:30: PT 13.0 H, INR 1.13 08/04/21 17:30: WBC 13.80 H, Hgb 12.8, Hct 39.7, Plt Count 290 08/04/21 17:30: Sodium 136, Potassium 4.1, BUN 16, Creatinine 1.13, Glucose 138 H, Total Bilirubin 0.5, AST 36, ALT 51, Alkaline Phosphatase 128 H <Alvin Davis - Last Filed: 08/05/21 00:38> Assessment and Plan - Problems (Diagnosis) (1) Pneumonia due to COVID-19 virus Current Visit: Yes Status: Acute (2) CAD (coronary artery disease) Current Visit: Yes Status: Chronic Qualifiers: Coronary Disease-Associated Artery/Lesion type: [place] artery [place] vs. transplanted heart: [place] heart Associated angina: without angina Qualified Code(s): I25.10 - Atherosclerotic heart disease of [place] coronary artery without angina pectoris - Plan continue O2 as needed, gentle IVF hydration CRP, ferritin, procal, lactate pending continue covid supplements, PO steroids antitussives and antiemetics as needed reconcile and continue home medications DVT ppx Discharge Plan: Home Plan to discharge in: 24 Hours - Advance Directives Does patient have a Living Will: No Does patient have a Durable POA for Healthcare: No - Code Status/Comfort Care Code Status Assessed: Yes (full code ) Critical Care: No Time Spent Managing Pts Care (In Minutes): 70 <Alvin Davis - Last Filed: 08/05/21 00:38> - Problems (Diagnosis) (1) Pneumonia due to COVID-19 virus Current Visit: Yes Status: Acute (2) CAD (coronary artery disease) Current Visit: Yes Status: Chronic Qualifiers: Coronary Disease-Associated Artery/Lesion type: [place] artery [place] vs. transplanted heart: [place] heart Associated angina: without angina Qualified Code(s): I25.10 - Atherosclerotic heart disease of [place] coronary artery without angina pectoris <Aditi Hopson - Last Filed: 08/08/21 00:56> Date of Service: 08/04/21 Subjective Subjective: Patient clinical symptoms continued to improve. She is having multiple complaints however. Wanting to go home with home health and home oxygen. Will arrange at this point. Review of Systems 10-point ROS is otherwise unremarkable Physical Examination - Vital Signs Reviewed - Physical Exam General: Alert, In no apparent distress Respiratory: Clear to auscultation bilaterally, Normal air movement Cardiovascular: Regular rate/rhythm, Normal S1 S2 Gastrointestinal: Normal bowel sounds, No tenderness Neurological: No focal deficits Assessment & Plan - Problems (Diagnosis) (1) Pneumonia due to COVID-19 virus Current Visit: Yes Status: Acute (2) CAD (coronary artery disease) Current Visit: Yes Status: Chronic Qualifiers: Coronary Disease-Associated Artery/Lesion type: [place] artery [place] vs. transplanted heart: [place] heart Associated angina: without angina Qualified Code(s): I25.10 - Atherosclerotic heart disease of [place] coronary artery without angina pectoris - Plan Continue with plan of care as mentioned below: -continue O2 as needed, gentle IVF hydration -repeat labs -continue covid and PO steroids -antitussives and antiemetics as needed -reconcile and continue home medications -DVT ppx - Advance Directives Does patient have a Living Will: Yes Does patient have a Durable POA for Healthcare: Yes <Aditi Hopson - Last Filed: 08/08/21 00:56>
[2021-08-05 01:07] LABS: Urine Appearance CLEAR (Clear); Urine Bilirubin NEGATIVE (Negative); Urine Blood NEGATIVE (Negative); Urine Color YELLOW (Yellow); Urine Glucose NEGATIVE (Negative); Urine Protein TRACE (Negative); Urine Specific Gravity 1.015 (1.005-1.030)
[2021-08-05 01:11] VITALS: BMI 29.0
[2021-08-05] MEDS: NA CHLORIDE 0.9% 1,000 ML IV SCH ×2 (01:19→21:00)
[2021-08-05 01:34] LABS: Urine Bacteria <20 /HPF (<20); Urine Mucus 1+ /HPF (NONE SEEN); Urine RBC <5 /HPF (NONE SEEN)
[2021-08-05] MEDS: ACETAMINOPHEN 500 MG TAB PO PRN (02:04)
[2021-08-05] MEDS: INSULIN -REGULAR HUMAN 50 UNIT/0.5 ML ML SQ SCH ×4 (07:30→21:00)
[2021-08-05] MEDS: VITAMIN D 1000 UNIT TAB PO SCH (09:04)
[2021-08-05] MEDS: ENOXAPARIN 40 MG/0.4 ML SQ SCH (09:05)
[2021-08-05] MEDS: THIAMINE HCL 100 MG TABLET PO SCH (09:05)
[2021-08-05] MEDS: FAMOTIDINE 20 MG TAB PO SCH (09:05)
[2021-08-05] MEDS: predniSONE 5 MG TAB PO SCH ×2 (09:05→20:38)
[2021-08-05] MEDS: ASCORBIC ACID 500 MG TABLET PO SCH ×4 (09:05→20:38)
[2021-08-05] MEDS: ZINC SULFATE 220 MG CAP PO SCH (09:05)
[2021-08-05] MEDS: ASPIRIN EC 81 MG TAB PO SCH (09:05)
[2021-08-05 12:56] LABS: Albumin 2.5 g/dL (3.4-5.0); Bilirubin Total 0.2 mg/dL (0.2-1.0); Phosphorus 1.7 mg/dL (2.5-4.9); Potassium 4.1 mmol/L (3.5-5.1); Protein, Total 6.6 g/dL (6.4-8.2); Thyroid Stimulating Hormone 0.124 uIU/mL (0.360-3.740)
[2021-08-05 13:40] LABS: Absolute Lymphocytes (CBC) 0.9 K/uL (0.7-4.9); Hematocrit 37.8 % (36.0-45.0); Lymphocytes % 6.9 % (15.3-44.8); MPV 7.5 fL (7.6-11.3)
[2021-08-05 14:08] LABS: Magnesium 2.2 mg/dL (1.8-2.4)
[2021-08-05 14:38] LABS: Blood Morphology Comment NOT SEEN (NOT SEEN); Platelet Estimate ADEQ; White Blood Cell Scan OK (OK)
[2021-08-05] MEDS: POTASS/SODIUM PHOSPHATE 1 PKT POWD.PACK PO SCH ×3 (14:40→16:03)
[2021-08-05 17:04] LABS: Magnesium 1.9
[2021-08-05] MEDS ORDERED: ZOLPIDEM TARTRATE 5 MG TABLET PO PRN (19:27)
--- NOTE | 2021-08-05 20:27 | P.PN ---
Subjective Date of Service: 08/05/21 Subjective: No new changes, No C/O voiced, Improving Review of Systems 10-point ROS is otherwise unremarkable Physical Examination - Vital Signs Temperature: 98.6 F Blood Pressure: 140/63 Pulse: 73 Respirations: 18 Pulse Ox (%): 93 - Physical Exam General: Alert, In no apparent distress HEENT: Atraumatic, PERRLA, EOMI Neck: Supple, JVD not distended Respiratory: Clear to auscultation bilaterally, Normal air movement Cardiovascular: Regular rate/rhythm, Normal S1 S2 Gastrointestinal: Normal bowel sounds, No tenderness Musculoskeletal: No tenderness Integumentary: No rashes Neurological: Normal speech, Normal tone, Normal affect Lymphatics: No axilla or inguinal lymphadenopathy - Studies Laboratory Data (last 24 hrs) 08/04/21 17:30: Lipase 168 08/04/21 17:30: WBC 13.80 H, Hgb 12.8, Hct 39.7, Plt Count 290 08/04/21 17:30: Sodium 136, Potassium 4.1, BUN 16, Creatinine 1.13, Glucose 138 H, Magnesium 1.9, Total Bilirubin 0.5, AST 36, ALT 51, Alkaline Phosphatase 128 H Microbiology Data (last 24 hrs): 08/04/21 20:15 Blood - Blood Anaerobic Blood Culture - Final 08/04/21 20:01 Blood - Blood Anaerobic Blood Culture - Final Medications List Reviewed: Yes Assessment & Plan - Problems (Diagnosis) (1) Pneumonia due to COVID-19 virus Current Visit: Yes Status: Acute (2) CAD (coronary artery disease) Current Visit: Yes Status: Chronic Qualifiers: Coronary Disease-Associated Artery/Lesion type: [place] artery [place] vs. transplanted heart: [place] heart Associated angina: without angina Qualified Code(s): I25.10 - Atherosclerotic heart disease of [place] coronary artery without angina pectoris - Plan continue O2 as needed, gentle IVF hydration CRP, ferritin, procal, lactate pending continue covid supplements, PO steroids antitussives and antiemetics as needed reconcile and continue home medications DVT ppx - Advance Directives Does patient have a Living Will: Yes Does patient have a Durable POA for Healthcare: Yes
[2021-08-05] MEDS: ATORVASTATIN 20 MG TAB PO SCH (20:38)
[2021-08-05] MEDS: QUETIAPINE 100MG TAB PO SCH (20:38)
[2021-08-05] MEDS: PANTOPRAZOLE 40MG TABLET PO SCH (20:38)
[2021-08-05] MEDS: ALPRAZOLAM 0.5 MG TABLET PO PRN (20:39)
[2021-08-05] MEDS: ZONISAMIDE 100 MG PO SCH (21:00)
[2021-08-05] MEDS ORDERED: CEFTRIAXONE 1,000 MG in NA CHLORIDE 0.9% 50 ML IVPB SCH (22:00)
[2021-08-05] MEDS: CEFTRIAXONE 1,000 MG in NA CHLORIDE 0.9% 50 ML IVPB SCH (22:00)
[2021-08-05] MEDS ORDERED: AZITHROMYCIN IV 500 MG in NA CHLORIDE 0.9% 250 ML IVPB SCH ×2 (22:00→22:30)
[2021-08-05] MEDS ORDERED: CEFTRIAXONE 1000 MG/VIAL ONE (22:58)
[2021-08-06] MEDS: INSULIN -REGULAR HUMAN 50 UNIT/0.5 ML ML SQ SCH ×4 (07:30→21:00)
[2021-08-06] MEDS: THIAMINE HCL 100 MG TABLET PO SCH (07:44)
[2021-08-06] MEDS: ASPIRIN EC 81 MG TAB PO SCH (07:45)
[2021-08-06] MEDS: ASCORBIC ACID 500 MG TABLET PO SCH ×4 (07:45→20:38)
[2021-08-06] MEDS: PANTOPRAZOLE 40MG TABLET PO SCH ×3 (07:45→21:00)
[2021-08-06] MEDS: VITAMIN D 1000 UNIT TAB PO SCH (07:45)
[2021-08-06] MEDS: DILTIAZEM HCL 120 MG SR CAP PO SCH (07:46)
[2021-08-06] MEDS: AMLODIPINE 5 MG TAB PO SCH (07:46)
[2021-08-06] MEDS: ZINC SULFATE 220 MG CAP PO SCH (07:46)
[2021-08-06] MEDS: FAMOTIDINE 20 MG TAB PO SCH (07:46)
[2021-08-06] MEDS: CEFTRIAXONE 1,000 MG in NA CHLORIDE 0.9% 50 ML IVPB SCH (07:46)
[2021-08-06] MEDS: predniSONE 5 MG TAB PO SCH ×2 (07:46→20:38)
[2021-08-06] MEDS: ENOXAPARIN 40 MG/0.4 ML SQ SCH (07:47)
[2021-08-06] MEDS: HOME MED 1 EA UNK (Linaclotide [Linzess] 290 MCG Capsule) PO SCH (07:48)
[2021-08-06] MEDS: BUPROPION HCL XL 150 MG TAB PO SCH ×2 (09:00→09:22)
[2021-08-06] MEDS: ALPRAZOLAM 0.5 MG TABLET PO PRN ×3 (09:22→23:25)
[2021-08-06] MEDS: BENZONATATE 100 MG CAP PO PRN ×2 (09:22→16:53)
[2021-08-06] MEDS: ACETAMINOPHEN 500 MG TAB PO PRN ×3 (11:58→23:24)
[2021-08-06] MEDS: NA CHLORIDE 0.9% 1,000 ML IV SCH (17:00)
[2021-08-06] MEDS: AZITHROMYCIN IV 500 MG in NA CHLORIDE 0.9% 250 ML IVPB SCH (20:36)
[2021-08-06] MEDS: QUETIAPINE 100MG TAB PO SCH (20:38)
[2021-08-06] MEDS: ATORVASTATIN 20 MG TAB PO SCH (20:38)
[2021-08-06] MEDS: ZONISAMIDE 100 MG PO SCH (21:00)
--- NOTE | 2021-08-06 23:51 | P.PN ---
Date of Service: 08/06/21 Subjective Subjective: No new changes, No C/O voiced, Improving Review of Systems 10-point ROS is otherwise unremarkable Physical Examination - Vital Signs reviewed - Physical Exam General: Alert, In no apparent distress Respiratory: Clear to auscultation bilaterally, Normal air movement Cardiovascular: Regular rate/rhythm, Normal S1 S2 Gastrointestinal: Normal bowel sounds, No tenderness Musculoskeletal: No tenderness Neurological: Normal speech, Normal tone, Normal affect Assessment & Plan - Problems (Diagnosis) (1) Pneumonia due to COVID-19 virus Current Visit: Yes Status: Acute (2) CAD (coronary artery disease) Current Visit: Yes Status: Chronic Qualifiers: Coronary Disease-Associated Artery/Lesion type: [place] artery [place] vs. transplanted heart: [place] heart Associated angina: without angina Qualified Code(s): I25.10 - Atherosclerotic heart disease of [place] coronary artery without angina pectoris - Plan Continue with POC as mentioned below: continue O2 as needed, gentle IVF hydration CRP, ferritin, procal, lactate pending continue covid supplements, PO steroids antitussives and antiemetics as needed reconcile and continue home medications DVT ppx - Advance Directives Does patient have a Living Will: Yes Does patient have a Durable POA for Healthcare: Yes
[2021-08-07] MEDS: INSULIN -REGULAR HUMAN 50 UNIT/0.5 ML ML SQ SCH ×4 (07:30→21:00)
[2021-08-07] MEDS: ASPIRIN EC 81 MG TAB PO SCH (08:40)
[2021-08-07] MEDS: AMLODIPINE 5 MG TAB PO SCH ×2 (08:41→09:29)
[2021-08-07] MEDS: ALPRAZOLAM 0.5 MG TABLET PO PRN ×3 (08:41→17:38)
[2021-08-07] MEDS: VITAMIN D 1000 UNIT TAB PO SCH (08:42)
[2021-08-07] MEDS: predniSONE 5 MG TAB PO SCH ×2 (08:43→21:15)
[2021-08-07] MEDS: ZINC SULFATE 220 MG CAP PO SCH (08:43)
[2021-08-07] MEDS: FAMOTIDINE 20 MG TAB PO SCH (08:43)
[2021-08-07] MEDS: PANTOPRAZOLE 40MG TABLET PO SCH ×3 (08:43→21:16)
[2021-08-07] MEDS: ASCORBIC ACID 500 MG TABLET PO SCH ×4 (08:43→21:14)
[2021-08-07] MEDS: DILTIAZEM HCL 120 MG SR CAP PO SCH ×2 (08:44→09:29)
[2021-08-07] MEDS: THIAMINE HCL 100 MG TABLET PO SCH (08:48)
[2021-08-07] MEDS: CEFTRIAXONE 1,000 MG in NA CHLORIDE 0.9% 50 ML IVPB SCH (08:48)
[2021-08-07] MEDS: BUPROPION HCL XL 150 MG TAB PO SCH (08:49)
[2021-08-07] MEDS: ENOXAPARIN 40 MG/0.4 ML SQ SCH (08:50)
[2021-08-07] MEDS: HOME MED 1 EA UNK (Linaclotide [Linzess] 290 MCG Capsule) PO SCH (08:51)
[2021-08-07] MEDS: ACETAMINOPHEN 500 MG TAB PO PRN (09:12)
[2021-08-07] MEDS: BENZONATATE 100 MG CAP PO PRN (09:29)
[2021-08-07] MEDS: NA CHLORIDE 0.9% 1,000 ML IV SCH (13:00)
[2021-08-07 18:53] LABS: Hematocrit 34.6 % (36.0-45.0); Lymphocytes % 13.8 % (15.3-44.8); MPV 7.1 fL (7.6-11.3); RBC Red Blood Cell Count 3.87 M/uL (3.86-4.86)
[2021-08-07] MEDS: ZONISAMIDE 100 MG PO SCH (21:00)
[2021-08-07] MEDS: AZITHROMYCIN IV 500 MG in NA CHLORIDE 0.9% 250 ML IVPB SCH (21:14)
[2021-08-07] MEDS: ATORVASTATIN 20 MG TAB PO SCH (21:15)
[2021-08-07] MEDS: QUETIAPINE 100MG TAB PO SCH (21:15)
--- NOTE | 2021-08-08 00:47 | P.PN ---
Date of Service: 08/07/21 Subjective Subjective: Patient remains hypoxic. Still feeling really weak. Requesting to go home with home health. Also will need home oxygen. Review of Systems 10-point ROS is otherwise unremarkable Physical Examination - Vital Signs reviewed - Physical Exam General: Alert, In no apparent distress Respiratory: Clear to auscultation bilaterally, Normal air movement Cardiovascular: Regular rate/rhythm, Normal S1 S2 Gastrointestinal: Normal bowel sounds, No tenderness Musculoskeletal: No tenderness Neurological: Normal speech, Normal tone, Normal affect Assessment & Plan - Problems (Diagnosis) (1) Pneumonia due to COVID-19 virus Current Visit: Yes Status: Acute (2) CAD (coronary artery disease) Current Visit: Yes Status: Chronic Qualifiers: Coronary Disease-Associated Artery/Lesion type: [place] artery [place] vs. transplanted heart: [place] heart Associated angina: without angina Qualified Code(s): I25.10 - Atherosclerotic heart disease of [place] coronary artery without angina pectoris (3) ulcerative colitis Current Visit: Yes Status: Chronic - Plan Continue with POC as mentioned below: continue O2 as needed, Hep-Lock IV Monitor labs closely continue covid supplements, PO steroids antitussives and antiemetics as needed reconcile and continue home medications DVT ppx - Advance Directives Does patient have a Living Will: Yes Does patient have a Durable POA for Healthcare: Yes
[2021-08-08] MEDS: BENZONATATE 100 MG CAP PO PRN (04:52)
[2021-08-08] MEDS: PANTOPRAZOLE 40MG TABLET PO SCH ×3 (06:25→21:02)
--- NOTE | 2021-08-08 06:44 | P.PN ---
Date of Service: 08/08/21 Subjective: No acute events overnight Reports gradual improvement each day Generalized weakness, with dyspnea on exertion No BM in several days, passing flatus ROS: 10 point ROS as noted above, otherwise negative Physical exam GEN: Alert, oriented, NAD, resting comfortably in bed HEENT: Normal conjunctiva, sclera anicteric CV: Regular rate and rhythm, no edema Pulm: Nonlabored respirations on 2L NC ABD: Soft, nontender, nondistended Neuro: Normal speech, normal affect Problem List Acute hypoxemic respiratory failure secondary to COVID-19 pneumonia CAD Ulcerative colitis Functional constipation Improving daily Oxygen weaning as tolerated Continue steroids Continue antibiotics Continue antitussives/antiemetics Physical therapy to evaluate today Continue DVT prophylaxis Stool softener, laxative ordered Code: Full Dispo: Anticipate DC home tomorrow, with home O2 Time Spent Managing Pts Care (In Minutes): 35
[2021-08-08] MEDS: INSULIN -REGULAR HUMAN 50 UNIT/0.5 ML ML SQ SCH ×4 (07:30→21:00)
--- NOTE | 2021-08-08 07:35 | RAD REPORT ---
EXAM DESCRIPTION: RAD - Chest Single View - 08/08/2021 6:15 am CLINICAL HISTORY: hypoxia, COVID COMPARISON: Chest Single View dated 08/04/2021; Chest Single View dated 12/05/2020; CHEST PA AND LAT 2 VIEW dated 02/07/2011; CHEST SINGLE VIEW dated 10/12/2008 FINDINGS: Lines: None. Lungs: Decreased lung volumes. Patchy ill-defined widespread opacities. Pleural: No significant pleural effusions or pneumothorax. Cardiac: Cardiomegaly. Bones: No acute fractures. Fusion hardware in the cervical spine. Other: IMPRESSION: Worsened aeration of the lungs which could be due to actual worsening versus a radiograp h taken in expiration.
[2021-08-08 07:58] LABS: Hematocrit 35.3 % (36.0-45.0); Lymphocytes % 21.5 % (15.3-44.8); MPV 6.9 fL (7.6-11.3)
[2021-08-08 08:16] LABS: BUN Blood Urea Nitrogen 11 mg/dL (7-18); Bicarbonate 27 mmol/L (21-32); Ferritin 113.3 ng/mL (8-388); Glucose Level 108 mg/dL (74-106); Potassium 3.9 mmol/L (3.5-5.1); Sodium Level 142 mmol/L (136-145)
[2021-08-08] MEDS: ENOXAPARIN 40 MG/0.4 ML SQ SCH (08:21)
[2021-08-08] MEDS: ACETAMINOPHEN 500 MG TAB PO PRN ×2 (08:22→17:51)
[2021-08-08] MEDS: levoFLOXacin 500 MG TAB PO SCH (08:23)
[2021-08-08] MEDS: predniSONE 5 MG TAB PO SCH ×2 (08:23→20:59)
[2021-08-08] MEDS: AMLODIPINE 5 MG TAB PO SCH (08:24)
[2021-08-08] MEDS: ASPIRIN EC 81 MG TAB PO SCH (08:24)
[2021-08-08] MEDS: THIAMINE HCL 100 MG TABLET PO SCH (08:24)
[2021-08-08] MEDS: DILTIAZEM HCL 120 MG SR CAP PO SCH (08:26)
[2021-08-08] MEDS: ALPRAZOLAM 0.5 MG TABLET PO PRN ×3 (08:27→17:51)
[2021-08-08] MEDS: VITAMIN D 1000 UNIT TAB PO SCH (08:27)
[2021-08-08] MEDS: BUPROPION HCL XL 150 MG TAB PO SCH (08:27)
[2021-08-08] MEDS: ZINC SULFATE 220 MG CAP PO SCH (08:27)
[2021-08-08] MEDS: ASCORBIC ACID 500 MG TABLET PO SCH ×4 (08:27→21:00)
[2021-08-08] MEDS: FAMOTIDINE 20 MG TAB PO SCH (08:27)
[2021-08-08] MEDS: HOME MED 1 EA UNK (Linaclotide [Linzess] 290 MCG Capsule) PO SCH (08:28)
[2021-08-08] MEDS ORDERED: POLYETHYL GLY 3350 17 GM/DOSE PO PRN (11:18)
[2021-08-08] MEDS: DOCUSATE NA/SENNA CONC 1 TAB PO PRN (12:09)
[2021-08-08] MEDS: QUETIAPINE 100MG TAB PO SCH (20:54)
[2021-08-08] MEDS: ATORVASTATIN 20 MG TAB PO SCH (20:59)
[2021-08-08] MEDS: ZONISAMIDE 100 MG PO SCH (21:00)
--- NOTE | 2021-08-09 06:54 | RAD REPORT ---
EXAM DESCRIPTION: RAD - Chest Single View - 08/09/2021 6:32 am CLINICAL HISTORY: covid pneumonia COMPARISON: Portable August 08, portable August 04 TECHNIQUE: AP portable chest image was obtained 08/09/2021 6:32 am . FINDINGS: Lung volumes remain low. Mid and lower lung field airspace opacification has improved, par ticularly left base. Remnant infiltrate remains. Enlarged cardiac silhouette again noted. Vasculature is prominent. No progressive failure or volume overload findings. No pneumothorax or enlarging pleural effusion. IMPRESSION: Limited shallow inspiration portable exam shows partial clearing of bilateral pneumonia, particularly left base.
[2021-08-09] MEDS: INSULIN -REGULAR HUMAN 50 UNIT/0.5 ML ML SQ SCH (07:30)
[2021-08-09 08:26] LABS: Absolute Lymphocytes (CBC) 1.3 K/uL (0.7-4.9); Hematocrit 34.8 % (36.0-45.0); Lymphocytes % 20.4 % (15.3-44.8); MPV 6.8 fL (7.6-11.3); RBC Red Blood Cell Count 3.89 M/uL (3.86-4.86)
[2021-08-09 08:31] LABS: C-Reactive Protein 30.4 mg/L (<3.00); Potassium 4.1 mmol/L (3.5-5.1)
[2021-08-09 09:00] VITALS: O2SAT 98
[2021-08-09] MEDS: predniSONE 5 MG TAB PO SCH (09:00)
[2021-08-09] MEDS: BUPROPION HCL XL 150 MG TAB PO SCH (09:00)
[2021-08-09] MEDS: HOME MED 1 EA UNK (Linaclotide [Linzess] 290 MCG Capsule) PO SCH (09:00)
[2021-08-09] MEDS: PANTOPRAZOLE 40MG TABLET PO SCH ×2 (09:00→09:47)
[2021-08-09 09:05] VITALS: BP 142/79; TEMP 97.7
[2021-08-09] MEDS: ASCORBIC ACID 500 MG TABLET PO SCH (09:45)
[2021-08-09] MEDS: AMLODIPINE 5 MG TAB PO SCH (09:45)
[2021-08-09] MEDS: levoFLOXacin 500 MG TAB PO SCH (09:45)
[2021-08-09] MEDS: DOCUSATE NA/SENNA CONC 1 TAB PO PRN (09:45)
[2021-08-09] MEDS: VITAMIN D 1000 UNIT TAB PO SCH (09:46)
[2021-08-09] MEDS: DILTIAZEM HCL 120 MG SR CAP PO SCH (09:46)
[2021-08-09] MEDS: ALPRAZOLAM 0.5 MG TABLET PO PRN (09:46)
[2021-08-09] MEDS: ENOXAPARIN 40 MG/0.4 ML SQ SCH (09:47)
[2021-08-09] MEDS: ZINC SULFATE 220 MG CAP PO SCH (09:47)
[2021-08-09] MEDS: ASPIRIN EC 81 MG TAB PO SCH (09:47)
[2021-08-09] MEDS: THIAMINE HCL 100 MG TABLET PO SCH (09:47)
[2021-08-09] MEDS: FAMOTIDINE 20 MG TAB PO SCH (09:47)
--- NOTE | 2021-08-09 18:46 | P.DS ---
Admission Date: 08/04/21 Discharge Date: 08/09/21 Disposition: DC HOME/HOME HEALTH CARE Discharge Condition: GOOD Reason for Admission: covid pneumonia Procedures: Problem List Acute hypoxemic respiratory failure secondary to COVID-19 pneumonia CAD Ulcerative colitis Functional constipation Brief History of Present Illness: 70 yo F with CAD and anxiety who presents with COVID+ diagnosis one week ago. She says for the past 5 days she has had increasing shortness of breath, cough, and nausea. Denies fever, vomiting. She is requiring 2L NC at bedside. In the ED she received IV fluids and antibiotics. Hospital Course: Patient was found to have COVID-19 pneumonia. She had improvement of her symptoms with Oxygen supplementation, vitamins, and steroid supplementation. She was empirically covered for possible bacterial infection with antibiotics and discharged home with a prescription for steroids and antibiotics. Discharged home with home oxygen supplementation. Follow up with PCP within 1 week Follow up with Pulmonology with 1 week. Vital Signs/Physical Exam: Physical exam GEN: Alert, oriented, NAD, resting comfortably in bed HEENT: Normal conjunctiva, sclera anicteric CV: Regular rate and rhythm, no edema Pulm: Nonlabored respirations on 2L NC at rest Neuro: Normal speech, normal affect Temp Pulse Resp BP Pulse Ox 97.7 F 69 18 142/79 H 94 08/09/21 08:00 08/09/21 09:46 08/09/21 08:00 08/09/21 09:46 08/09/21 08:00 Laboratory Data at Discharge: WBC 6.20 K/uL (4.3-10.9) D 08/09/21 08:05 Hgb 11.3 g/dL (12.0-15.0) L 08/09/21 08:05 Hct 34.8 % (36.0-45.0) L 08/09/21 08:05 Plt Count 328 K/uL (152-406) 08/09/21 08:05 PT 13.0 SECONDS (9.5-12.5) H 08/04/21 17:30 INR 1.13 08/04/21 17:30 Sodium 140 mmol/L (136-145) 08/09/21 08:05 Potassium 4.1 mmol/L (3.5-5.1) 08/09/21 08:05 BUN 16 mg/dL (7-18) 08/09/21 08:05 Creatinine 0.74 mg/dL (0.55-1.3) 08/09/21 08:05 Glucose 115 mg/dL (74-106) H 08/09/21 08:05 Phosphorus 1.7 mg/dL (2.5-4.9) L 08/05/21 12:14 Magnesium 2.0 mg/dL (1.8-2.4) 08/08/21 07:45 Total Bilirubin 0.2 mg/dL (0.2-1.0) 08/05/21 12:14 AST 31 U/L (15-37) 08/05/21 12:14 ALT 45 U/L (12-78) 08/05/21 12:14 Alkaline Phosphatase 115 U/L (45-117) 08/05/21 12:14 Triglycerides 114 mg/dL (<150) 08/05/21 12:14 Cholesterol 145 mg/dL (<200) 08/05/21 12:14 HDL Cholesterol 45 mg/dL (40-60) 08/05/21 12:14 Cholesterol/HDL Ratio 3.22 08/05/21 12:14 Lipase 168 U/L (73-393) 08/04/21 17:30 Home Medications: ALPRAZolam [Alprazolam] 0.5 mg PO QID PRN 08/05/21 Amlodipine [Norvasc*] 5 mg PO DAILY 08/05/21 Aspirin 81 mg PO DAILY 08/05/21 Atorvastatin Calcium 20 mg PO BEDTIME 08/05/21 Bupropion *Xl* [Wellbutrin XL*] 150 mg PO DAILY 08/05/21 Diltiazem HCl [Diltiazem 24Hr Cd] 240 mg PO DAILY 08/05/21 Esomeprazole Magnesium 40 mg PO DAILY 08/05/21 Linaclotide [Linzess] 290 mcg PO DAILY 08/05/21 Pantoprazole [Protonix Tab*] 40 mg PO BID 08/05/21 Quetiapine [Seroquel*] 100 mg PO BEDTIME 08/05/21 Zolpidem Tartrate [Ambien] 5 mg PO BEDTIME PRN 08/05/21 Zonisamide 100 mg PO BEDTIME 08/05/21 Metoprolol Succinate [Toprol Xl*] 50 mg PO DAILY 08/06/21 levoFLOXacin [Levaquin*] 500 mg PO DAILY 4 Days #4 tab 08/09/21 predniSONE [Prednisone*] 5 mg PO BID 7 Days #14 tab 08/09/21 New Medications: levoFLOXacin [Levaquin*] 500 mg PO DAILY 4 Days #4 tab predniSONE [Prednisone*] 5 mg PO BID 7 Days #14 tab Physician Discharge Instructions: Patient was found to have COVID-19 pneumonia. She had improvement of her symptoms with Oxygen supplementation, vitamins, and steroid supplementation. She was empirically covered for possible bacterial infection with antibiotics and discharged home with a prescription for steroids and antibiotics. Discharged home with home oxygen supplementation. Follow up with PCP within 1 week Follow up with Pulmonology with 1 week. Diet: Regular Activity: Ad angy Followup: Gus Gomez MD [ACTIVE - CAN ADMIT] - 1 Week (Call to schedule an appointment) NONE,NONE [Primary Care Provider] - 1 Week (Call to schedule an appointment.) Time spent managing pt's care (in minutes): 45
== END 2021-08-09 11:25 | disposition home health service (06) | DRG 177 ==
LOC: ER 18:38 → 4TH 23:44
PROVIDERS: ADMIT Hospitalist; ATTEND Hospitalist
DX: U07.1 COVID-19 (principal); J12.82 Pneumonia due to coronavirus disease 2019; J96.01 Acute respiratory failure with hypoxia; K51.90 Ulcerative colitis, unspecified, without complications; K59.04 Chronic idiopathic constipation; F41.9 Anxiety disorder, unspecified; I25.10 Atherosclerotic heart disease of native coronary artery without angina pectoris; A49.9 Bacterial infection, unspecified
CPT/HCPCS: 0241U; 36415; 71045; 80048; 80053; 80061; 80076; 81001; 81003; 82728; 82947; 83605; 83690; 83735; 83880; 84100; 84145; 84439; 84443; 84484; 85025; 85379; 85610; 86140; 87040; 93005; 94760; 96361; 96374; 96375; 97161; 97530; 99285; J0456; J1650; J2405; J2920; J7030; J7040; J7050; J7512